=== PATIENT | female | born 1945 | race Caucasian/White ===

== ENCOUNTER 2019-09-26 07:46 | Inpatient (IN) | payer MEDICARE, BC ==
[2019-09-26] MEDS ORDERED: SODIUM CHLORIDE 0.9% 1,000 ML IV STA (07:57)
--- NOTE | 2019-09-26 07:59 | ED ---
SOB HPI - General Chief Complaint: Shortness of Breath Stated Complaint: Sore throat/cough/sob Time Seen by Provider: 09/26/19 07:57 Source: patient, family Mode of arrival: wheelchair Limitations: no limitations - History of Present Illness Initial Comments: 73-year-old female with history of chronic hypoxia with COPD presents emergency department today for chief complaint of shortness of breath. Patient states that she had increasing shortness of breath for the past 3-4 days. Patient states that she has had increasing cough or sputum production. States she had a temperature 100.1 yesterday. Patient denies any leg swelling bilateral or unilateral. Denies any calf pain history of cancer history of unprovoked DVT or pulmonary embolism, however did have a DVT after childbirth. Patient denies any chest pressure but admits to right-sided sharp chest pain with deep inspiration. Patient denies hemoptysis. Patient states she is usually on oxygen at home, however seems to be short of breath despite oxygen therapy. Patient denies any specific positions which are more comfortable such as lying flat or sitting up. Patient states a few days ago she did have a sore throat but this has since resolved. Remaining review of systems negative upon arrival patient appears well but signs of acute distress however is found to be hypoxic with tac hycardia. - Related Data Home Medications Medication Instructions Recorded Confirmed Aspirin EC [Ecotrin Low Dose] 81 mg PO DAILY 09/26/19 09/26/19 Budesonide-Formot 160-4.5 Mcg 2 puff INHALATION RT-BID 09/26/19 09/26/19 [Symbicort 160-4.5 Mcg Inhaler] Ipratropium [place] [Ipratropium 1 spray EA NOSTRIL BID PRN 09/26/19 09/26/19 [place] 0.03%] Ipratropium/Albuterol Sulfate 2 puff INHALATION RT-QID PRN 09/26/19 09/26/19 [Combivent Respimat Inhaler] Multivitamins, Thera [Multivitamin 1 tab PO DAILY 09/26/19 09/26/19 (formulary)] PARoxetine HCL [Paxil] 40 mg PO DAILY 09/26/19 09/26/19 busPIRone HCL 15 mg PO BID 09/26/19 09/26/19 Allergies Allergy/AdvReac Type Severity Reaction Status Date / Time No Known Allergies Allergy Verified 09/26/19 10:25 Review of Systems ROS Statement: Those systems with pertinent positive or pertinent negative responses have been documented in the HPI. ROS Other: All systems not noted in ROS Statement are negative. Past Medical History Past Medical History: COPD History of Any Multi-Drug Resistant Organisms: None Reported Past Surgical History: Cholecystectomy, Tubal Ligation Past Psychological History: No Psychological Hx Reported Smoking Status: Former smoker Past Alcohol Use History: None Reported Past Drug Use History: None Reported General Exam - General Exam Comments Initial Comments: General: The patient is awake and alert, in no distress Eye: +3 mm pupils are equal, round and reactive to light, extra-ocular movements are intact. No nystagmus. There is normal conjunctiva bilaterally. No signs of icterus. No photophobia Ears, nose, mouth and throat: There are moist mucous membranes and no oral lesions. Oropharynx was not erythematous there is no tonsillar enlargement exudates or lesions. Uvula midline. No anterior cervical lymphadenopathy. Rhinorrhea, clear and bilateral nares. No tripoding, no drooling. Neck: The neck is supple, there is no tenderness or JVD. No nuchal rigidity Cardiovascular: There is a regular rate and rhythm. murmur appreciated however no rub or gallop is appreciated. Respiratory: Diminished lung sounds in all lynn. Expiratory wheeze and rhonchi noted. No specific rales appreciated. No retractions or abdominal breathing. Gastrointestinal: Soft, non-distended, non-tender abdomen without masses or organomegaly noted. There is no rebound or guarding present. Bowel sounds are unremarkable. Musculoskeletal: Normal ROM, no tenderness. Strength 5/5. Sensation intact. Radial pulses equal bilaterally 2+. Neurological: A&O x 3. CN II-XII intact, There are no obvious motor or sensory deficits. Coordination appears grossly intact. Speech appears normal, no muffling. Skin: Skin is warm and dry and no rashes or lesions are noted. No extremity edema or calf pain, (-) homans sign. Psychiatric: Cooperative Limitations: no limitations Course Vital Signs 09/26/19 09/26/19 09/26/19 07:51 08:16 08:27 Temperature 98.1 F Pulse Rate 134 H 128 H 125 H Respiratory 24 Rate Blood Pressure 116/58 O2 Sat by Pulse 81 L Oximetry 09/26/19 09/26/19 09/26/19 08:49 09:05 09:17 Temperature Pulse Rate 71 123 H 120 H Respiratory 22 Rate Blood Pressure 118/67 O2 Sat by Pulse 96 Oximetry 09/26/19 09/26/19 09:42 11:30 Temperature 98.7 F 98.2 F Pulse Rate 112 H 120 H Respiratory 20 18 Rate Blood Pressure 134/86 135/70 O2 Sat by Pulse 96 93 L Oximetry Medical Decision Making - Medical Decision Making 73-year-old female presenting for shortness of breath. Patient found to be tachycardic upon arrival. EKG reveals sinus tachycardia. Patient denies any chest pressure. Admits to pleuritic chest pain with inspiration. CT angios negative for pulmonary embolism. Patient given multiple DuoNeb treatments patient states this has began to resolve symptoms. CT did find findings concerning for possible developing pneumonia. Patient does have history of fever or increasing cough or sputum production. Patient given ceftriaxone in the emergency department. At this time we'll admit patient for pneumonia and COPD exacerbation. Will tend cardiac enzymes and schedule duoneb treatments. Patient agreeable to admission at this time. Discussed case with attending provider Dr. Flores was agreeable to admission and spoke with Dr. Vazquez - Lab Data Result diagrams: 09/26/19 08:20 09/26/19 08:20 Lab Results 09/26/19 09/26/19 09/26/19 Range/Units 08:20 08:20 08:20 WBC 14.6 H (3.8-10.6) k/uL RBC 4.21 (3.80-5.40) m/uL Hgb 13.3 (11.4-16.0) gm/dL Hct 40.4 (34.0-46.0) % MCV 95.8 (80.0-100.0) fL MCH 31.5 (25.0-35.0) pg MCHC 32.9 (31.0-37.0) g/dL RDW 11.4 L (11.5-15.5) % Plt Count 174 (150-450) k/uL Neutrophils % 89 % Lymphocytes % 4 % Monocytes % 4 % Eosinophils % 0 % Basophils % 2 % Neutrophils # 12.9 H (1.3-7.7) k/uL Lymphocytes # 0.6 L (1.0-4.8) k/uL Monocytes # 0.6 (0-1.0) k/uL Eosinophils # 0.0 (0-0.7) k/uL Basophils # 0.3 H (0-0.2) k/uL PT (9.0-12.0) sec INR (<1.2) APTT (22.0-30.0) sec D-Dimer (<0.60) mg/L FEU Sodium 139 (137-145) mmol/L Potassium 4.6 (3.5-5.1) mmol/L Chloride 96 L (98-107) mmol/L Carbon Dioxide 35 H (22-30) mmol/L Anion Gap 8 mmol/L BUN 17 (7-17) mg/dL Creatinine 0.72 (0.52-1.04) mg/dL Est GFR (CKD-EPI)AfAm >90 (>60 ml/min/1.73 sqM) Est GFR (CKD-EPI)NonAf 84 (>60 ml/min/1.73 sqM) Glucose 157 H (74-99) mg/dL Plasma Lactic Acid Jose Alejandro (0.7-2.0) mmol/L Calcium 9.9 (8.4-10.2) mg/dL Total Bilirubin 0.9 (0.2-1.3) mg/dL AST 50 H (14-36) U/L ALT 50 (9-52) U/L Alkaline Phosphatase 59 (38-126) U/L Troponin I (0.000-0.034) ng/mL NT-Pro-B Natriuret Pep 310 pg/mL Total Protein 7.0 (6.3-8.2) g/dL Albumin 4.1 (3.5-5.0) g/dL Influenza Type A RNA (Not Detectd) Influenza Type B (PCR) (Not Detectd) 09/26/19 09/26/19 09/26/19 Range/Units 08:20 08:20 08:20 WBC (3.8-10.6) k/uL RBC (3.80-5.40) m/uL Hgb (11.4-16.0) gm/dL Hct (34.0-46.0) % MCV (80.0-100.0) fL MCH (25.0-35.0) pg MCHC (31.0-37.0) g/dL RDW (11.5-15.5) % Plt Count (150-450) k/uL Neutrophils % % Lymphocytes % % Monocytes % % Eosinophils % % Basophils % % Neutrophils # (1.3-7.7) k/uL Lymphocytes # (1.0-4.8) k/uL Monocytes # (0-1.0) k/uL Eosinophils # (0-0.7) k/uL Basophils # (0-0.2) k/uL PT 10.3 (9.0-12.0) sec INR 1.0 (<1.2) APTT 24.4 (22.0-30.0) sec D-Dimer 0.42 (<0.60) mg/L FEU Sodium (137-145) mmol/L Potassium (3.5-5.1) mmol/L Chloride (98-107) mmol/L Carbon Dioxide (22-30) mmol/L Anion Gap mmol/L BUN (7-17) mg/dL Creatinine (0.52-1.04) mg/dL Est GFR (CKD-EPI)AfAm (>60 ml/min/1.73 sqM) Est GFR (CKD-EPI)NonAf (>60 ml/min/1.73 sqM) Glucose (74-99) mg/dL Plasma Lactic Acid Jose Alejandro (0.7-2.0) mmol/L Calcium (8.4-10.2) mg/dL Total Bilirubin (0.2-1.3) mg/dL AST (14-36) U/L ALT (9-52) U/L Alkaline Phosphatase (38-126) U/L Troponin I 0.028 (0.000-0.034) ng/mL NT-Pro-B Natriuret Pep pg/mL Total Protein (6.3-8.2) g/dL Albumin (3.5-5.0) g/dL Influenza Type A RNA Not Detected (Not Detectd) Influenza Type B (PCR) Not Detected (Not Detectd) 09/26/19 Range/Units 08:20 WBC (3.8-10.6) k/uL RBC (3.80-5.40) m/uL Hgb (11.4-16.0) gm/dL Hct (34.0-46.0) % MCV (80.0-100.0) fL MCH (25.0-35.0) pg MCHC (31.0-37.0) g/dL RDW (11.5-15.5) % Plt Count (150-450) k/uL Neutrophils % % Lymphocytes % % Monocytes % % Eosinophils % % Basophils % % Neutrophils # (1.3-7.7) k/uL Lymphocytes # (1.0-4.8) k/uL Monocytes # (0-1.0) k/uL Eosinophils # (0-0.7) k/uL Basophils # (0-0.2) k/uL PT (9.0-12.0) sec INR (<1.2) APTT (22.0-30.0) sec D-Dimer (<0.60) mg/L FEU Sodium (137-145) mmol/L Potassium (3.5-5.1) mmol/L Chloride (98-107) mmol/L Carbon Dioxide (22-30) mmol/L Anion Gap mmol/L BUN (7-17) mg/dL Creatinine (0.52-1.04) mg/dL Est GFR (CKD-EPI)AfAm (>60 ml/min/1.73 sqM) Est GFR (CKD-EPI)NonAf (>60 ml/min/1.73 sqM) Glucose (74-99) mg/dL Plasma Lactic Acid [place] 1.6 (0.7-2.0) mmol/L Calcium (8.4-10.2) mg/dL Total Bilirubin (0.2-1.3) mg/dL AST (14-36) U/L ALT (9-52) U/L Alkaline Phosphatase (38-126) U/L Troponin I (0.000-0.034) ng/mL NT-Pro-B Natriuret Pep pg/mL Total Protein (6.3-8.2) g/dL Albumin (3.5-5.0) g/dL Influenza Type A RNA (Not Detectd) Influenza Type B (PCR) (Not Detectd) Disposition Clinical Impression: Tachycardia, Pneumonia, COPD exacerbation, Cough Disposition: ADMITTED IP TO THIS HOSP Condition: Stable Is patient prescribed a controlled substance at d/c from ED?: No Referrals: Eric Gay MD [Primary Care Provider] - 1-2 days Time of Disposition: 11:14 Decision to Admit Reason: Admit from EC Decision Date: 09/26/19 Decision Time: 11:14
[2019-09-26] MEDS ORDERED: IPRATROPIUM-ALBUTEROL 3 ML NEB INHALATION STA ×2 (08:04→08:57)
[2019-09-26] MEDS ORDERED: methylPREDNISolone SOD SUCCI 125 MG/2 ML VIAL IV STA (08:04)
--- NOTE | 2019-09-26 09:06 | XR ---
EXAMINATION TYPE: XR chest 2V DATE OF EXAM: 09/26/2019 COMPARISON: None HISTORY: 73 year-old female shortness of breath, difficulty breathing TECHNIQUE: PA and lateral views FINDINGS: Heart normal size. Aorta and pulmonary vasculature within normal limits. Hyperinflation with mild int erstitial prominence. Left-sided nipple shadow visualized. No consolidation or pleural effusion. IMPRESSION: COPD with advanced emphysema. No acute process seen.
[2019-09-26 09:08] LABS: ALT 50 U/L (9-52); AST 50 U/L (14-36); African American GFR (CKD) >90 (>60 ml/min/1.73 sqM); Albumin 4.1 g/dL (3.5-5.0); Alkaline Phosphatase 59 U/L (38-126); Anion Gap 8 mmol/L; Blood Urea Nitrogen 17 mg/dL (7-17); Calcium 9.9 mg/dL (8.4-10.2); Carbon Dioxide 35 mmol/L (22-30); Chloride 96 mmol/L (98-107); Glucose 157 mg/dL (74-99); Non-African American GFR(CKD) 84 (>60 ml/min/1.73 sqM); Potassium 4.6 mmol/L (3.5-5.1); Sodium 139 mmol/L (137-145); Total Bilirubin 0.9 mg/dL (0.2-1.3)
[2019-09-26 09:09] LABS: D-Dimer 0.42 mg/L FEU (<0.60); Partial Thromboplastin Time 24.4 sec (22.0-30.0); Prothrombin Time 10.3 sec (9.0-12.0)
[2019-09-26 09:27] LABS: Basophils # (A) 0.3 k/uL (0-0.2); Basophils % (A) 2 %; Eosinophils % (A) 0 %; HCT 40.4 % (34.0-46.0); HGB 13.3 gm/dL (11.4-16.0); Lymphocytes # (A) 0.6 k/uL (1.0-4.8); Lymphocytes % (A) 4 %; MCH 31.5 pg (25.0-35.0); MCHC 32.9 g/dL (31.0-37.0); MCV 95.8 fL (80.0-100.0); Mean Platelet Volume 7.2; Monocytes # (A) 0.6 k/uL (0-1.0); Monocytes % (A) 4 %; Neutrophils # (A) 12.9 k/uL (1.3-7.7); Neutrophils % (A) 89 %; Platelet Count 174 k/uL (150-450); RBC 4.21 m/uL (3.80-5.40); RDW 11.4 % (11.5-15.5); WBC 14.6 k/uL (3.8-10.6)
--- NOTE | 2019-09-26 10:11 | CT ---
EXAMINATION TYPE: CT angio chest DATE OF EXAM: 09/26/2019 COMPARISON: NONE HISTORY: Clinical concern for PE. Shortness of breath. CT DLP: 184.9 mGycm. Automated Exposure Control for Dose Reduction was Utilized. CONTRAST: CTA scan of the thorax is performed without and with IV Contrast, patient injected with 100 ml mL of Isovue 370, pulmonary embolism protocol. MIP Images are created on CT scanner and reviewed. FINDINGS: LUNGS: Some solid pulmonary nodule in the right lower lobe as seen on series 406 image 91 measuring 1 0.3 x 6.7 mm. Some linear airspace disease within the lingula appears as atelectasis or mucus pluggin g. Peribronchial cuffing to the left lower lobe bronchi are seen beginning at the hilum. Slight hilar peribronchial cuffing on the right in the right upper lobe. Cylindrical bronchiectasis throughout. M oderate centrilobular emphysematous changes. Scattered areas of pleural-parenchymal scarring and pleu ral thickening with biapical nodular pleural parenchymal thickening. MEDIASTINUM: There is satisfactory enhancement of the pulmonary artery and its branches, there is no CT evidence for pulmonary embolism. A few enlarged mediastinal lymph nodes with a prior lymph node me asuring 1.1 cm in short axis and right hilar adenopathy measuring 1.5 x 1.5 cm. Left hilar lymph node measures 0.9 cm in short axis. No cardiomegaly or pericardial effusion is seen. Mild coronary artery calcifications within the left anterior descending coronary artery and moderate within the left main coronary artery. Aortic root measures 4.1 cm, mildly aneurysmal. Ascending thoracic aorta is upper limits of normal si ze measuring 3.8 cm. OTHER: Cholecystectomy is seen with postsurgical extra hepatic biliary ductal dilatation. Elongation of the left hepatic lobe into the left upper quadrant. Angiographic phase of the liver limits evaluat ion. Extensive atherosclerosis of the upper abdominal aorta. Probable left upper pole renal cyst with pseudoenhancement. This has an average Hounsfield unit of 27. Thyroid gland is noted to be heterogen ous. Mild multilevel degenerative changes of the spine. IMPRESSION: 1. No evidence of pulmonary embolus. 2. Moderate pulmonary emphysema with multifocal peribronchial cuffing (which may be reactive or infec tious in etiology-consider bronchitis), probable mucus plugging in the lingula, and right lower lobe subsolid pulmonary nodule. Given the morphology and composition follow-up CT thorax in 3 months is re commended to assess for any interval growth. If there is persistent that this time this does meet siz e criteria for PET/CT. 3. Mild aneurysmal dilatation of the aortic root and upper limits of normal size of the thoracic aort a.
[2019-09-26] MEDS ORDERED: SODIUM CHLORIDE 0.9% 500 ML 500 ML IV ONE (10:55)
[2019-09-26] MEDS ORDERED: IPRATROPIUM-ALBUTEROL 3 ML NEB INHALATION PRN (11:12)
[2019-09-26] MEDS: SODIUM CHLORIDE 0.9% 1,000 ML IV SCH ×2 (11:30→21:28)
[2019-09-26] MEDS: IPRATROPIUM-ALBUTEROL 3 ML NEB INHALATION SCH ×4 (15:01→18:59)
[2019-09-26] MEDS: busPIRone HCl 5 MG TAB PO SCH (21:27)
--- NOTE | 2019-09-26 22:27 | P.HPIM ---
History of Present Illness H&P Date: 09/26/19 Chief Complaint: Short of breath History of presenting complaint: This is a very pleasant 73-year-old patient of Dr. Eric Taylor. Several family members are present to her. Patient did smoke for many years stopped about 6 years ago. Has a known diagnosis of COPD. Patient 3 days ago started out with a sore throat and progressively became worse. Patient started coughing started bringing up yellow sputum. Fever at about 101. Wheezing tired. At home patient normally uses 2 L of oxygen. Her oxygen company told her to increase the oxygen to 3 L when she habits. Appetite is gone down. Tired rundown. Admitted for the same. PE was ruled out. Chest x-ray did not show any obvious infiltrate. Patient been living with her daughter. She has always been a small eater.. Has lost some weight in the last 1 year close to 15 pounds Review of systems: GEN.: Weak tired fever or weight loss EYES: None HEENT: None NECK: None RESPIRATORY: As above CARDIOVASCULAR: None GASTROINTESTINAL: None GENITOURINARY: None MUSCULOSKELETAL: None LYMPHATICS: None HEMATOLOGICAL: None PSYCHIATRY: Anxiety depression NEUROLOGICAL: None Past medical history to include: Anxiety, depression, COPD Social history: Lives with her daughter. Smoked about 2 packs a day for close to 50 years stopped about 6 months ago. No alcohol. Family history: Reviewed, noncontributory to presentation Physical examination: VITAL SIGNS: 98.1, 134, 24, 106/58, 81% on 2 L GENERAL: BMI 16, sitting up tired. EYES: Pupils equal. Conjunctiva normal. HEENT: External appearance of nose and ears normal, oral cavity grossly normal. NECK: JVD not raised; masses not palpable. HEART: First and second heart sounds are normal; no edema. LUNGS: Respiratory rate increased, poor air entry prolonged expiration. ABDOMEN: Soft, nontender, liver spleen not palpable, no masses palpable. PSYCH: Alert and oriented x3; mood and affect slightly anxiousl. NEUROLOGICAL: Cranial nerves grossly intact; no facial asymmetry, power and sensation grossly intact. LYMPHATICS: No lymph nodes palpable in the axilla and neck MUSCULOSKELETAL: Loss of subcutaneous fat, evidence of OA INVESTIGATIONS, reviewed in the clinical context: White count 14 was 6 hemoglobin 13.3 platelets 174 progression 4.6 creatinine 0.7 to Troponin 0.028, 0.0-4, 0.020 EKG tracing personally reviewed by me-sinus tachycardia with evidence of P pulmonale Chest x-ray film personally reviewed by me-severe emphysema with a tubular heart no obvious infiltrate Chest CTA-negative for PE Assessment: -Acute severe advanced emphysema exacerbation and an ex-smoker -Acute tracheal bronchitis -Acute hypoxic up on chronic hypoxic respiratory failure from emphysema -Moderate protein calorie malnutrition decreased oral intake -Strongly suspect underlying secondary probably hypertension due to COPD. Plan: -Patient started on nebulized bronchodilators every 4 hours, inhaled and IV steroids, IV ceftriaxone, oxygen supplementation. Ensure is being added. Dietitian will be consulted. Care was discussed with the patient and family the bedside. Lovenox for DVT prophylaxis. 2 2-D echocardiogram to assess for secondary portal hypertension. Past Medical History Past Medical History: COPD History of Any Multi-Drug Resistant Organisms: None Reported Past Surgical History: Cholecystectomy, Tubal Ligation Past Psychological History: No Psychological Hx Reported Smoking Status: Former smoker Past Alcohol Use History: None Reported Past Drug Use History: None Reported Medications and Allergies Home Medications Medication Instructions Recorded Confirmed Type Aspirin EC [Ecotrin Low Dose] 81 mg PO DAILY 09/26/19 09/26/19 History Budesonide-Formot 160-4.5 Mcg 2 puff INHALATION RT-BID 09/26/19 09/26/19 History [Symbicort 160-4.5 Mcg Inhaler] Ipratropium [place] [Ipratropium 1 spray EA NOSTRIL BID PRN 09/26/19 09/26/19 History [place] 0.03%] Ipratropium/Albuterol Sulfate 2 puff INHALATION RT-QID PRN 09/26/19 09/26/19 History [Combivent Respimat Inhaler] Multivitamins, Thera [Multivitamin 1 tab PO DAILY 09/26/19 09/26/19 History (formulary)] PARoxetine HCL [Paxil] 40 mg PO DAILY 09/26/19 09/26/19 History busPIRone HCL 15 mg PO BID 09/26/19 09/26/19 History Allergies Allergy/AdvReac Type Severity Reaction Status Date / Time No Known Allergies Allergy Verified 09/26/19 10:25 Physical Exam Vitals: Vital Signs Temp Pulse Pulse Resp BP BP Pulse Ox 09/26/19 20:16 98.1 F 119 H 20 120/64 95 11/18/19 19:09 112 H 09/26/19 18:59 112 H 09/26/19 17:26 18 09/26/19 15:16 110 H 09/26/19 15:08 110 H 09/26/19 15:00 97.8 F 119 H 18 148/54 98 09/26/19 12:21 98.7 F 121 H 18 144/63 95 09/26/19 11:30 98.2 F 120 H 18 135/70 93 L 09/26/19 09:42 98.7 F 112 H 20 134/86 96 09/26/19 09:17 120 H 09/26/19 09:05 123 H 09/26/19 08:49 71 22 118/67 96 09/26/19 08:27 125 H 09/26/19 08:16 128 H 09/26/19 07:51 98.1 F 134 H 24 116/58 81 L Intake and Output 09/26/19 09/26/19 09/26/19 06:59 14:59 22:59 Other: # Voids 2 1 Weight 47.627 kg Results CBC & Chem 7: 09/26/19 08:20 09/26/19 08:20 Labs: Abnormal Lab Results - Last 24 Hours (Table) 09/26/19 09/26/19 Range/Units 08:20 08:20 WBC 14.6 H (3.8-10.6) k/uL RDW 11.4 L (11.5-15.5) % Neutrophils # 12.9 H (1.3-7.7) k/uL Lymphocytes # 0.6 L (1.0-4.8) k/uL Basophils # 0.3 H (0-0.2) k/uL Chloride 96 L (98-107) mmol/L Carbon Dioxide 35 H (22-30) mmol/L Glucose 157 H (74-99) mg/dL AST 50 H (14-36) U/L Thrombosis Risk Factor Assmnt - Choose All That Apply Each Risk Factor Represents 2 Points: Age 61-74 years Thrombosis Risk Factor Assessment Total Risk Factor Score: 2 Thrombosis Risk Factor Assessment Level: Low Risk
[2019-09-27] MEDS: methylPREDNISolone SOD SUCCI 40 MG/ML 1 ML VIAL IV SCH ×6 (00:04→23:20)
[2019-09-27] MEDS: ENOXAPARIN 40 MG/0.4 ML SYRINGE SQ SCH ×2 (00:04→07:47)
[2019-09-27] MEDS: SODIUM CHLORIDE 0.9% 1,000 ML IV SCH ×2 (00:06→20:31)
[2019-09-27] MEDS: IPRATROPIUM-ALBUTEROL 3 ML NEB INHALATION SCH ×7 (00:17→19:05)
[2019-09-27] MEDS: BUDESONIDE 1 MG/2 ML NEBU INHALATION SCH ×3 (00:26→19:04)
[2019-09-27] MEDS: FORMOTEROL FUMARATE 20 MCG/2 ML NEBU INHALATION SCH ×3 (00:26→19:05)
[2019-09-27 07:02] LABS: Glucose,Whole Blood 140 mg/dL (75-99)
[2019-09-27] MEDS: INSULIN ASPART (NovoLOG) 100 UNIT/ML VIAL SQ SCH ×4 (07:38→20:30)
[2019-09-27] MEDS: busPIRone HCl 5 MG TAB PO SCH ×2 (07:46→20:29)
[2019-09-27] MEDS: MULTIVITAMINS, THERA 1 EACH TAB PO SCH (07:46)
[2019-09-27] MEDS: PARoxetine 20 MG TAB PO SCH (07:46)
[2019-09-27] MEDS: AZITHROMYCIN 500 MG TAB PO SCH (07:46)
[2019-09-27] MEDS: ASPIRIN 81 MG PO SCH (07:46)
[2019-09-27] MEDS ORDERED: predniSONE 20 MG TAB PO SCH (09:00)
[2019-09-27 11:49] LABS: Glucose,Whole Blood 152 mg/dL (75-99)
--- NOTE | 2019-09-27 12:37 | ECHOF ---
Referral Reason:Secondary pulmonary hypertension MEASUREMENTS -------- HEIGHT: 172.7 cm WEIGHT: 47.6 kg BP: 128/57 RVIDd: 2.6 cm (< 3.3) IVSd: 1.1 cm (0.6 - 1.1) LVIDd: 2.9 cm (3.9 - 5.3) LVPWd: 1.2 cm (0.6 - 1.1) IVSs: 1.6 cm LVIDs: 2.0 cm LVPWs: 1.7 cm LA Diam: 2.7 cm (2.7 - 3.8) LAESV Index (A-L): 20.75 ml/m Ao Diam: 3.5 cm (2.0 - 3.7) AV Cusp: 2.1 cm (1.5 - 2.6) MV EXCURSION: 20.022 mm (> 18.000) MV EF SLOPE: 198 mm/s (70 - 150) EPSS: 0.7 cm MV E Aidan: 1.65 m/s MV DecT: 107 ms MV A Aidan: 0.57 m/s MV E/A Ratio: 2.91 RAP: 5.00 mmHg RVSP: 40.09 mmHg TAPSE: 20.35 mm FINDINGS -------- Resting tachycardia (HR>100bpm). This was a technically good study. The left ventricular size is normal. There is borderline concentric left ventricular hypertrophy. Overall left ventricular systolic function is normal with, an EF between 60 - 65 %. The right ventricle is normal in size. Normal LA size by volume 22+/-6 ml/m2. The right atrium is normal in size. Interatrial and interventricular septum intact. The aortic valve is trileaflet and appears structurally normal. The mitral valve leaflets are mildly thickened. Mild tricuspid regurgitation present. There is mild pulmonary hypertension. The right ventricular systolic pressure, as measured by Doppler, is 40.09mmHg. There is no pulmonic regurgitation present. The aortic root size is normal. Normal inferior vena cava with normal inspiratory collapse consistent with estimated right atrial pre ssure of 5 mmHg. There is no pericardial effusion. CONCLUSIONS -------- 1. Resting tachycardia (HR>100bpm). 2. This was a technically good study. 3. The left ventricular size is normal. 4. There is borderline concentric left ventricular hypertrophy. 5. Overall left ventricular systolic function is normal with, an EF between 60 - 65 %. 6. The right ventricle is normal in size. 7. Normal LA size by volume 22+/-6 ml/m2. 8. The right atrium is normal in size. 9. Interatrial and interventricular septum intact. 10. The aortic valve is trileaflet and appears structurally normal. 11. The mitral valve leaflets are mildly thickened. 12. Mild tricuspid regurgitation present. 13. There is mild pulmonary hypertension. 14. The right ventricular systolic pressure, as measured by Doppler, is 40.09mmHg. 15. There is no pulmonic regurgitation present. 16. The aortic root size is normal. 17. Normal inferior vena cava with normal inspiratory collapse consistent with estimated right atrial pressure of 5 mmHg. 18. There is no pericardial effusion. FOUNTAIN JERK: Magali Yuen RDCS
[2019-09-27 14:56] VITALS: BMI 16.0
[2019-09-27 16:34] LABS: Glucose,Whole Blood 193 mg/dL (75-99)
[2019-09-27 20:25] LABS: Glucose,Whole Blood 222 mg/dL (75-99)
--- NOTE | 2019-09-27 23:11 | P.PN ---
Progress Note - Text Progress Note Date: 09/27/19 Chief Complaint: Short of breath History of presenting complaint: This is a very pleasant 73-year-old patient of Dr. Eric Taylor. Several family members are present to her. Patient did smoke for many years stopped about 6 years ago. Has a known diagnosis of COPD. Patient 3 days ago started out with a sore throat and progressively became worse. Patient started coughing started bringing up yellow sputum. Fever at about 101. Wheezing tired. At home patient normally uses 2 L of oxygen. Her oxygen company told her to increase the oxygen to 3 L when she habits. Appetite is gone down. Tired rundown. Admitted for the same. PE was ruled out. Chest x-ray did not show any obvious infiltrate. Patient been living with her daughter. She has always been a small eater.. Has lost some weight in the last 1 year close to 15 pounds admitted with acute severe COPD exacerbation, acute tracheobronchitis, acute hypoxic respiratory failure. Today-sitting up in a chair. 2 daughters are visiting. Some tremors.with use of bronchodilators. Short of breath. Review of systems: Was done for constitutional, cardiovascular, GI, pulmonary. relevant finding as above Active Medications Albuterol/Ipratropium (Duoneb 0.5 Mg-3 Mg/3 Ml Soln) 3 ml INHALATION RT-Q4H PRN PRN Reason: Shortness Of Breath Or Wheezing Albuterol/Ipratropium (Duoneb 0.5 Mg-3 Mg/3 Ml Soln) 3 ml INHALATION RT-Q6H [facility] Last Admin: 09/27/19 19:05 Dose: 3 ml Documented by: Aspirin (Aspirin) 81 mg PO DAILY [facility] Last Admin: 09/27/19 07:46 Dose: 81 mg Documented by: Azithromycin (Zithromax) 500 mg PO DAILY [facility] Last Admin: 09/27/19 07:46 Dose: 500 mg Documented by: Budesonide (Pulmicort) 1 mg INHALATION RT-BID [facility] Last Admin: 09/27/19 19:04 Dose: 1 mg Documented by: Buspirone HCl (Buspar) 15 mg PO BID [facility] Last Admin: 09/27/19 20:29 Dose: 15 mg Documented by: Enoxaparin Sodium (Lovenox) 40 mg SQ DAILY [facility] Last Admin: 09/27/19 07:47 Dose: 40 mg Documented by: Formoterol Fumarate (Perforomist) 20 mcg INHALATION RT-BID [facility] Last Admin: 09/27/19 19:05 Dose: 20 mcg Documented by: Sodium Chloride (Saline 0.9%) 1,000 mls @ 10 mls/hr IV .Q24H [facility] Last Admin: 09/27/19 20:31 Dose: Not Given Documented by: Insulin Aspart (Novolog) 0 unit SQ ACHS [facility]; Protocol Last Admin: 09/27/19 20:30 Dose: 3 unit Documented by: Methylprednisolone Sodium Succinate (Solu-Medrol) 40 mg IV Q8HR [facility] Last Admin: 09/27/19 17:50 Dose: 40 mg Documented by: Multivitamins (Theragran) 1 each PO DAILY [facility] Last Admin: 09/27/19 07:46 Dose: 1 each Documented by: Paroxetine HCl (Paxil) 40 mg PO DAILY [facility] Last Admin: 09/27/19 07:46 Dose: 40 mg Documented by: Physical examination: VITAL SIGNS: 98.2, 116, 17, 131/72, 96% liters GENERAL: BMI 16, sitting up in a chair, a bit anxious EYES: Pupils equal. Conjunctiva normal. HEENT: External appearance of nose and ears normal, oral cavity grossly normal. NECK: JVD not raised; masses not palpable. HEART: First and second heart sounds are normal; no edema. LUNGS: Respiratory rate increased, poor air entry prolonged expiration. ABDOMEN: Soft, nontender, liver spleen not palpable, no masses palpable. PSYCH: Alert and oriented x3; mood and affect slightly anxiousl. NEUROLOGICAL: mild tremors MUSCULOSKELETAL: Loss of subcutaneous fat, evidence of OA INVESTIGATIONS, reviewed in the clinical context: White count 14 was 6 hemoglobin 13.3 platelets 174 progression 4.6 creatinine 0.7 to Troponin 0.028, 0.0-4, 0.020 EKG tracing personally reviewed by me-sinus tachycardia with evidence of P pulmonale Chest x-ray film personally reviewed by me-severe emphysema with a tubular heart no obvious infiltrate Chest CTA-negative for PE 2-D echo-EF 60-65%, Assessment: -Acute severe advanced emphysema exacerbation and an ex-smoker, POA, slow to respond -Acute tracheal bronchitis -Acute hypoxic up on chronic hypoxic respiratory failure from emphysema -Moderate protein calorie malnutrition decreased oral intake -Tremor secondary to bronchodilators Plan: Back on bronchodilators to every 6 hours.decrease Solu-Medrol to every 12 hours. Had a lengthy discussed with the patient and family. Prognosis guarded. Patient immediately still hospital for another woman 2 days at least. Encouraged to increase oral intake.
[2019-09-28] MEDS: IPRATROPIUM-ALBUTEROL 3 ML NEB INHALATION SCH ×4 (01:39→21:31)
[2019-09-28 06:59] LABS: Glucose,Whole Blood 119 mg/dL (75-99)
[2019-09-28] MEDS: INSULIN ASPART (NovoLOG) 100 UNIT/ML VIAL SQ SCH ×4 (07:19→20:54)
[2019-09-28] MEDS: FORMOTEROL FUMARATE 20 MCG/2 ML NEBU INHALATION SCH ×2 (08:07→21:31)
[2019-09-28] MEDS: BUDESONIDE 1 MG/2 ML NEBU INHALATION SCH ×2 (08:07→21:31)
[2019-09-28] MEDS: busPIRone HCl 5 MG TAB PO SCH ×2 (08:17→20:55)
[2019-09-28] MEDS: AZITHROMYCIN 500 MG TAB PO SCH (08:18)
[2019-09-28] MEDS: ASPIRIN 81 MG PO SCH (08:18)
[2019-09-28] MEDS: methylPREDNISolone SOD SUCCI 40 MG/ML 1 ML VIAL IV SCH ×3 (08:18→22:56)
[2019-09-28] MEDS: MULTIVITAMINS, THERA 1 EACH TAB PO SCH (08:18)
[2019-09-28] MEDS: PARoxetine 20 MG TAB PO SCH (08:18)
[2019-09-28] MEDS: ENOXAPARIN 40 MG/0.4 ML SYRINGE SQ SCH (08:20)
[2019-09-28 08:23] LABS: ALT 78 U/L (9-52); AST 82 U/L (14-36); African American GFR (CKD) >90 (>60 ml/min/1.73 sqM); Albumin 3.6 g/dL (3.5-5.0); Alkaline Phosphatase 57 U/L (38-126); Anion Gap 5 mmol/L; Blood Urea Nitrogen 22 mg/dL (7-17); Calcium 9.8 mg/dL (8.4-10.2); Carbon Dioxide 34 mmol/L (22-30); Chloride 104 mmol/L (98-107); Glucose 125 mg/dL (74-99); Magnesium 1.9 mg/dL (1.6-2.3); Non-African American GFR(CKD) 81 (>60 ml/min/1.73 sqM); Sodium 143 mmol/L (137-145); Total Bilirubin 0.3 mg/dL (0.2-1.3); Total Protein 6.4 g/dL (6.3-8.2)
[2019-09-28 08:35] LABS: Ionized Calcium 5.1 mg/dL (4.5-5.3)
[2019-09-28 11:27] LABS: Glucose,Whole Blood 121 mg/dL (75-99)
[2019-09-28 17:05] LABS: Glucose,Whole Blood 130 mg/dL (75-99)
[2019-09-28 20:54] LABS: Glucose,Whole Blood 190 mg/dL (75-99)
[2019-09-28] MEDS: SODIUM CHLORIDE 0.9% 1,000 ML IV SCH (20:55)
--- NOTE | 2019-09-28 22:16 | P.PN ---
Progress Note - Text Progress Note Date: 09/28/19 Chief Complaint: Short of breath Interval history: This is a very pleasant 73-year-old patient of Dr. Eric Taylor. Several family members are present to her. Patient did smoke for many years stopped about 6 years ago. Has a known diagnosis of COPD. Patient 3 days ago started out with a sore throat and progressively became worse. Patient started coughing started bringing up yellow sputum. Fever at about 101. Wheezing tired. At home patient normally uses 2 L of oxygen. Her oxygen company told her to increase the oxygen to 3 L when she habits. Appetite is gone down. Tired rundown. Admitted for the same. PE was ruled out. Chest x-ray did not show any obvious infiltrate. Patient been living with her daughter. She has always been a small eater.. Has lost some weight in the last 1 year close to 15 pounds admitted with acute severe COPD exacerbation, acute tracheobronchitis, acute hypoxic respiratory failure. Today-yesterday evening dose of Solu-Medrol was cut back to 20 mg every 8. Also DuoNeb was cut back to every 6 hours. Today patient feels a bit better. Less jittery. Breathing slightly better. Members of present bedside. Eating some food. Review of systems: Was done for constitutional, cardiovascular, GI, pulmonary. relevant finding as above Active Medications Albuterol/Ipratropium (Duoneb 0.5 Mg-3 Mg/3 Ml Soln) 3 ml INHALATION RT-Q4H PRN PRN Reason: Shortness Of Breath Or Wheezing Albuterol/Ipratropium (Duoneb 0.5 Mg-3 Mg/3 Ml Soln) 3 ml INHALATION RT-Q6H [facility] Last Admin: 09/28/19 21:31 Dose: 3 ml Documented by: Aspirin (Aspirin) 81 mg PO DAILY [facility] Last Admin: 09/28/19 08:18 Dose: 81 mg Documented by: Azithromycin (Zithromax) 500 mg PO DAILY [facility] Last Admin: 09/28/19 08:18 Dose: 500 mg Documented by: Budesonide (Pulmicort) 1 mg INHALATION RT-BID [facility] Last Admin: 09/28/19 21:31 Dose: 1 mg Documented by: Buspirone HCl (Buspar) 15 mg PO BID [facility] Last Admin: 11/20/19 20:55 Dose: 15 mg Documented by: Enoxaparin Sodium (Lovenox) 40 mg SQ DAILY [facility] Last Admin: 09/28/19 08:20 Dose: 40 mg Documented by: Formoterol Fumarate (Perforomist) 20 mcg INHALATION RT-BID [facility] Last Admin: 09/28/19 21:31 Dose: 20 mcg Documented by: Sodium Chloride (Saline 0.9%) 1,000 mls @ 10 mls/hr IV .Q24H [facility] Last Admin: 09/28/19 20:55 Dose: Not Given Documented by: Insulin Aspart (Novolog) 0 unit SQ ACHS [facility]; Protocol Last Admin: 09/28/19 20:54 Dose: 2 unit Documented by: Methylprednisolone Sodium Succinate (Solu-Medrol) 20 mg IV Q8HR [facility] Last Admin: 09/28/19 16:10 Dose: 20 mg Documented by: Multivitamins (Theragran) 1 each PO DAILY [facility] Last Admin: 09/28/19 08:18 Dose: 1 each Documented by: Paroxetine HCl (Paxil) 40 mg PO DAILY [facility] Last Admin: 09/28/19 08:18 Dose: 40 mg Documented by: Physical examination: VITAL SIGNS: 98.6, 119, 21, 150/80, 96% on 3 L GENERAL: BMI 16, sitting up in the window, EYES: Pupils equal. Conjunctiva normal. HEENT: External appearance of nose and ears normal, oral cavity grossly normal. NECK: JVD not raised; masses not palpable. HEART: First and second heart sounds are normal; no edema. LUNGS: Respiratory rate increased, slightly better air entry ABDOMEN: Soft, nontender, liver spleen not palpable, no masses palpable. PSYCH: Alert and oriented x3; mood and affect slightly anxiousl. NEUROLOGICAL: mild tremors , decreased MUSCULOSKELETAL: Loss of subcutaneous fat, evidence of OA INVESTIGATIONS, reviewed in the clinical context: Potassium 5 bun 22 creatinine 0.74 TSH 0.85 to Previous testing White count 14 was 6 hemoglobin 13.3 platelets 174 Troponin 0.028, 0.0-4, 0.020 EKG tracing personally reviewed by me-sinus tachycardia with evidence of P pulmonale Chest x-ray film personally reviewed by me-severe emphysema with a tubular heart no obvious infiltrate Chest CTA-negative for PE 2-D echo-EF 60-65%, Assessment: -Acute severe advanced emphysema exacerbation and an ex-smoker, POA, slow to respond -Acute tracheal bronchitis -Acute hypoxic up on chronic hypoxic respiratory failure from emphysema -Moderate protein calorie malnutrition decreased oral intake -Tremor secondary to bronchodilators Plan: Care was discussed with the patient and the family. Because of Advanced emphysema patient is taking time. Continue current medication treatment plan. Encouraged to ambulate.
[2019-09-29] MEDS: IPRATROPIUM-ALBUTEROL 3 ML NEB INHALATION SCH ×4 (03:24→19:30)
[2019-09-29 07:11] LABS: Glucose,Whole Blood 108 mg/dL (75-99)
[2019-09-29] MEDS: INSULIN ASPART (NovoLOG) 100 UNIT/ML VIAL SQ SCH ×4 (07:21→20:19)
[2019-09-29] MEDS: PARoxetine 20 MG TAB PO SCH (08:11)
[2019-09-29] MEDS: MULTIVITAMINS, THERA 1 EACH TAB PO SCH (08:11)
[2019-09-29] MEDS: ASPIRIN 81 MG PO SCH (08:11)
[2019-09-29] MEDS: busPIRone HCl 5 MG TAB PO SCH ×2 (08:11→20:25)
[2019-09-29] MEDS: ENOXAPARIN 40 MG/0.4 ML SYRINGE SQ SCH (08:11)
[2019-09-29] MEDS: AZITHROMYCIN 500 MG TAB PO SCH (08:12)
[2019-09-29] MEDS: methylPREDNISolone SOD SUCCI 40 MG/ML 1 ML VIAL IV SCH (08:12)
[2019-09-29] MEDS: FORMOTEROL FUMARATE 20 MCG/2 ML NEBU INHALATION SCH ×2 (08:30→19:48)
[2019-09-29] MEDS: BUDESONIDE 1 MG/2 ML NEBU INHALATION SCH ×2 (08:30→19:30)
[2019-09-29 11:52] LABS: Glucose,Whole Blood 186 mg/dL (75-99)
--- NOTE | 2019-09-29 13:07 | P.CRDCN ---
History of Present Illness History of present illness: HISTORY OF PRESENTING ILLNESS This is a pleasant 73-year-old female past medical history significant for COPD and former nicotine dependence. She presented with shortness of breath. She does not follow in the office with a deli clerk for any reason. We have been asked to see him in consultation for tachycardia. She is currently being treated for acute exacerbation of COPD. She uses oxygen at home PRN. For the previous 3-4 days she has noticed increasing shortness of breath, productive cough and was febrile at one point. She denies chest pain or dizziness. On arrival EKG revealed sinus tachycardia with heart rate of 128. Since admission she has had multiple episodes of increased heart rate with any activity or ambulation in the room. Rates as high as 150. Repeat EKG and telemetry tracings reviewed, sinus tachycardia is again noted consistently. She is quite short of breath on exam as she just walked back from the bathroom. She does notice palpitations and states it makes her feel quite anxious. DIAGNOSTICS EKG reveals sinus tachycardia. Chest xray on admission shows advanced COPD. CTA negative for PE, moderate emphysema with multi-focal peribronchial cuffing, mucous plugging in the lingula and right lower lobe subsolid pulmonary nodule. Laboratory reviewed, WBC 14.6, plt 13.3, plt 174, d-dimer 0.42, sodium 143, potassium 5.0, creatinine 0.74, proBNP 310, cardiac enzymes negative x3, TSH 0.852. She takes not daily cardiac medications. Echocardiogram reveals preserved LV systolic function with EF 60-65%, mild TR and mild pulmonary hypertension with RVSP 40 mmHg. REVIEW OF SYSTEMS At the time of my exam: CONSTITUTIONAL: Denies fever or chills. CARDIOVASCULAR: Complains of shortness of breath and palpitations. Denies chest pain, orthopnea, PND. RESPIRATORY: Complains of cough. GASTROINTESTINAL: Denies abdominal pain, diarrhea, constipation, nausea or vomiting. MUSCULOSKELETAL: Denies myalgias. NEUROLOGIC: Denies numbness, tingling or weakness. ENDOCRINE: Denies fatigue, weight change, polydipsia or polyurina. GENITOURINARY: Denies burning, hematuria or urgency with micturation. HEMATOLOGIC: Denies history of anemia or bleeding. PHYSICAL EXAMINATION Blood pressure 150/80 heart rate 130 afebrile and maintaining oxygen saturaiton on nasal cannula. CONSTITUTIONAL: No apparent distress. HEENT: Head is normocephalic. Pupils are equal, round. Sclerae anicteric. Mucous membranes of the mouth are moist. No JVD. No carotid bruit. CHEST EXAMINATION: Diminished bilaterally with prolonged expiratory phase. Lungs are clear to auscultation. No chest wall tenderness is noted on palpation or with deep breathing. HEART EXAMINATION: Regular rate and rhythm. S1, S2 heard. No murmurs, gallops or rub. Tachycardic. ABDOMEN: Soft, nontender. Positive bowel sounds. EXTREMITIES: 2+ peripheral pulses, no lower extremity edema and no calf tender ness. NEUROLOGIC EXAMINATION: Patient is awake, alert and oriented x3. ASSESSMENT Acute exacerbation of COPD Sinus tachycardia Leukocytosis Hypertension Pulmonary hypertension, mild PLAN Initiate on verapamil 40 mg TID and lopressor 12.5 mg BID for heart rate and blood pressure control. Discontinue aspirin as she has no documented CAD and this poses more risk than benefit for primary prevention. Recommend Pulmonary evaluation for medication optimization and evaluation of pulmonary nodule. Thank you kindly for this consultation. Nurse Practitioner note has been reviewed, I agree with a documented findings and plan of care. Patient was seen and examined. Past Medical History Past Medical History: COPD History of Any Multi-Drug Resistant Organisms: None Reported Past Surgical History: Cholecystectomy, Tubal Ligation Past Psychological History: No Psychological Hx Reported Smoking Status: Former smoker Past Alcohol Use History: None Reported Past Drug Use History: None Reported - Past Family History Mother History Unknown: Yes Medications and Allergies Home Medications Medication Instructions Recorded Confirmed Type Aspirin [facility] [Ecotrin Low Dose] 81 mg PO DAILY 09/26/19 09/26/19 History Budesonide-Formot 160-4.5 Mcg 2 puff INHALATION RT-BID 09/26/19 09/26/19 History [Symbicort 160-4.5 Mcg Inhaler] Ipratropium [facility] [Ipratropium 1 spray EA NOSTRIL BID PRN 09/26/19 09/26/19 History [facility] 0.03%] Ipratropium/Albuterol Sulfate 2 puff INHALATION RT-QID PRN 09/26/19 09/26/19 History [Combivent Respimat Inhaler] Multivitamins, Thera [Multivitamin 1 tab PO DAILY 09/26/19 09/26/19 History (formulary)] PARoxetine HCL [Paxil] 40 mg PO DAILY 09/26/19 09/26/19 History busPIRone HCL 15 mg PO BID 09/26/19 09/26/19 History Allergies Allergy/AdvReac Type Severity Reaction Status Date / Time No Known Allergies Allergy Verified 09/26/19 10:25 Physical Exam Vitals: Vital Signs Temp Pulse Pulse Pulse Resp BP Pulse Ox 09/29/19 09:27 130 H 150/80 09/29/19 09:21 98.3 F 09/29/19 08:56 105 H 09/29/19 08:44 103 H 09/29/19 08:34 104 H 96 09/29/19 07:00 101 H 16 164/81 99 09/29/19 03:34 101 H 09/29/19 03:24 95 09/29/19 01:18 97.4 F L 96 16 135/73 93 L 09/28/19 21:49 99 09/28/19 21:41 100 09/28/19 21:40 100 09/28/19 21:32 96 99 09/28/19 18:52 96 09/28/19 18:51 120 H 18 09/28/19 18:46 98.6 F 119 H 21 150/80 96 09/28/19 16:42 110 H 09/28/19 16:34 110 H 09/28/19 15:40 97.8 F 110 H 20 142/90 96 09/28/19 15:00 98.3 F 128 H 18 157/77 96 Intake and Output 09/28/19 09/29/19 09/29/19 22:59 06:59 14:59 Intake Total 120 Balance 120 Intake: Intake, IV Titration 120 Amount Sodium Chloride 0.9% 1, 120 000 ml @ 10 mls/hr IV . Q24H [facility] Rx#:[id number] Other: Voiding Method Toilet Toilet Toilet # Voids 1 1 Results 09/26/19 08:20 09/28/19 07:31 Current Medications Generic Name Dose Route Start Last Admin Trade Name Freq PRN Reason Stop Dose Admin Albuterol/Ipratropium 3 ml 09/26/19 11:12 Duoneb 0.5 Mg-3 Mg/3 Ml Soln INHALATION RT-Q4H PRN Shortness Of Breath Or Wheezing Albuterol/Ipratropium 3 ml 09/27/19 20:00 09/29/19 08:30 Duoneb 0.5 Mg-3 Mg/3 Ml Soln INHALATION 3 ml RT-Q6H [facility] Administration Azithromycin 500 mg 09/27/19 09:00 09/29/19 08:12 Zithromax PO 500 mg DAILY [facility] Administration Budesonide 1 mg 09/26/19 22:11 09/29/19 08:30 Pulmicort INHALATION 1 mg RT-BID [facility] Administration Buspirone HCl 15 mg 09/26/19 21:00 09/29/19 08:11 Buspar PO 15 mg BID [facility] Administration Enoxaparin Sodium 40 mg 09/26/19 22:15 09/29/19 08:11 Lovenox SQ 40 mg DAILY [facility] Administration Formoterol Fumarate 20 mcg 09/26/19 22:12 09/29/19 08:30 Perforomist INHALATION 20 mcg RT-BID [facility] Administration Sodium Chloride 1,000 mls @ 10 mls/hr 09/26/19 22:15 09/28/19 20:55 Saline 0.9% IV Not Given .Q24H [facility] Insulin Aspart 0 unit 09/27/19 07:30 09/29/19 12:42 Novolog SQ 2 unit ACHS [facility] Administration Protocol Methylprednisolone Sodium Succinate 20 mg 09/28/19 00:00 09/29/19 08:12 Solu-Medrol IV 20 mg Q8HR [facility] Administration Metoprolol Tartrate 12.5 mg 09/29/19 13:00 Lopressor PO BID [facility] Multivitamins 1 each 09/27/19 09:00 09/29/19 08:11 Theragran PO 1 each DAILY [facility] Administration Paroxetine HCl 40 mg 09/27/19 09:00 09/29/19 08:11 Paxil PO 40 mg DAILY [facility] Administration Verapamil HCl 40 mg 09/29/19 16:00 Isoptin PO TID [facility] Intake and Output 09/28/19 09/29/19 09/29/19 22:59 06:59 14:59 Intake Total 120 Balance 120 Intake: Intake, IV Titration 120 Amount Sodium Chloride 0.9% 1, 120 000 ml @ 10 mls/hr IV . Q24H [facility] Rx#:[id number] Other: Voiding Method Toilet Toilet Toilet # Voids 1 1 09/26/19 08:20 09/28/19 07:31
[2019-09-29] MEDS: METOPROLOL TARTRATE 12.5 MG TAB PO SCH ×2 (14:01→20:20)
[2019-09-29] MEDS: predniSONE 20 MG TAB PO SCH (14:01)
[2019-09-29] MEDS: SODIUM CHLORIDE 0.9% 1,000 ML IV SCH (16:00)
[2019-09-29 16:43] LABS: Glucose,Whole Blood 157 mg/dL (75-99)
[2019-09-29] MEDS: VERAPAMIL 40 MG TAB PO SCH ×2 (16:53→21:34)
[2019-09-29 20:17] LABS: Glucose,Whole Blood 197 mg/dL (75-99)
--- NOTE | 2019-09-29 20:52 | CONS ---
CONSULTATION This is a pulmonary/critical care consult. DATE OF SERVICE: September 29, 2019 HISTORY OF PRESENT ILLNESS: This is a lady who was actually admitted back on September 26. We were just consulted today. She is a 73-year-old female with a history of COPD. She sees Dr. Eric Gay as a primary. She has never ever seen a lung doctor. She smoked for 50+ years. Anyway, the patient comes in with complaints of shortness of breath. Her shortness of breath has been coming on for a number of days and even weeks. It is getting progressively worse. She has increasing cough as well as sputum production. She also had a temperature of 100.1 degrees. She denies any chest pain or pressure. She denies any wheezing. She states that she does have COPD. She is on Combivent and Symbicort at home. She does use oxygen at home at 2 to 3 L/minute. Her daughters are in the room with her. She apparently has a concentrator and portable device. Anyway, when she is sitting doing nothing, her shortness of breath is manageable. With any activity, she becomes profoundly more much more short of breath. She is quite short of breath. Currently has obvious conversational dyspnea as well as use of accessory muscles. Again, the patient is sitting in bed with oxygen in place with her daughters in the bedroom. MEDICATIONS: Her medications include aspirin, Symbicort 160/4.5, Atrovent nasal spray, Combivent inhaler, multivitamins, Paxil, and BuSpar. ALLERGIES: Denied. PAST MEDICAL HISTORY: Positive for primarily COPD. She denies other major medical problems. SURGICAL HISTORY: Includes tubal ligation and cholecystectomy. SOCIAL HISTORY: Positive for many years of tobacco use, probably more than 50. She quit 6 years ago. She smoked a pack a day. She denies any alcohol or illicit drug use. FAMILY HISTORY: Noncontributory. ALLERGIES: Negative. REVIEW OF SYSTEMS: CONSTITUTIONAL negative. NEUROLOGIC negative. HEENT negative. CARDIOVASCULAR negative. PULMONARY: Shortness of breath, chest tightness, wheezing, cough, chest congestion and phlegm production. GI negative. negative. RHEUMATOLOGIC negative. IMMUNOLOGIC negative. ENDOCRINOLOGIC negative. DERMATOLOGIC negative. PHYSICAL EXAMINATION: VITAL SIGNS: Current vital signs are reviewed. Temperature 98.6. Heart rate 115, respiratory rate is probably 22-24 breaths per minute. She is using accessory muscles. Blood pressure is 159/77, mean 104 and on 3 L saturations 93%. GENERAL: She appears quite tachypneic and dyspneic. She does have conversational dyspnea. No audible wheezing. She is using accessory muscles of breathing including her sternocleidomastoid muscles. HEENT examination is grossly unremarkable. Nasal O2 in place. NECK: Supple. Full range of motion. No adenopathy. CARDIOVASCULAR examination reveals regular rhythm rate. She is tachycardic. S1, S2 normal. Heart rate about 118. It is regular. LUNGS: Reveal severely diminished breath sounds. A few scattered rhonchi and expiratory wheezes are noted. There is prolongation. ABDOMEN: Soft. Bowel sounds are heard. EXTREMITIES reveal very mild edema. SKIN: Without rash. NEUROLOGIC: Examination is brief but nonfocal. LABS: Reviewed. White count 14.6, hemoglobin 13.3, hematocrit 40.4, platelet count 174,000 PT/INR PTT normal D-dimer normal. Sodium 143, potassium 5, chloride 104, CO2 34, anion gap is 5. BUN and creatinine were 22 and 0.74. AST 82, ALT 78. The rest of the labs look okay. Influenza studies were negative. Based on her bicarbonate concentration or CO2 of 34, her baseline PaCO2 is expected to be 59+/- 2 mmHg. Hence, she has a CO2 retainer and likely has pretty severe emphysema. IMAGING PROCEDURE: A chest x-ray was done on the day of admission. Shows evidence of advanced emphysema. The CT angiogram was done. It showed no evidence of pulmonary embolism. There was evidence of peribronchial cuffing mucous plugging in the lingula and right lower lobe. There is also sub solid pulmonary nodule. Given these findings, a follow-up CT scan was recommended in 3 months. Medications are reviewed. Currently, the patient is on Zithromax 500 mg a day, Pulmicort 1 mg, Lovenox, BuSpar, formoterol, updrafts, prednisone 40 mg a day. ASSESSMENT: 1. Chronic obstructive pulmonary disease exacerbation in a preop patient with likely advanced chronic obstructive pulmonary disease/emphysema. 2. Chronic hypercapnic respiratory failure. 3. Chronic hypoxemic respiratory failure. 4. Previous history of heavy tobacco use. 5. Sub solid pulmonary nodule, right lung, which needs followup. PLAN: The patient's medications appear to be appropriate. I will not make any changes at this time. Additional recommendations and suggestions are forthcoming. Prognosis is guarded. We will continue to follow. She will need follow up for the nodule in the right lower lobe. We will discuss this with her when we see her tomorrow. MMMICHELET / IJN: [id number] /
--- NOTE | 2019-09-29 23:02 | P.PN ---
Progress Note - Text Progress Note Date: 09/29/19 Chief Complaint: Short of breath Interval history: This is a very pleasant 73-year-old patient of Dr. Eric Taylor. Several family members are present to her. Patient did smoke for many years stopped about 6 years ago. Has a known diagnosis of COPD. Patient 3 days ago started out with a sore throat and progressively became worse. Patient started coughing started bringing up yellow sputum. Fever at about 101. Wheezing tired. At home patient normally uses 2 L of oxygen. Her oxygen company told her to increase the oxygen to 3 L when she habits. Appetite is gone down. Tired rundown. Admitted for the same. PE was ruled out. Chest x-ray did not show any obvious infiltrate. Patient been living with her daughter. She has always been a small eater.. Has lost some weight in the last 1 year close to 15 pounds admitted with acute severe COPD exacerbation, acute tracheobronchitis, acute hypoxic respiratory failure. Today-imaging somewhat better. Up to the bathroom. Less anxious. less tremors.heart rate is still up to 120s. Ordered EKG. Did show sinus tachycardia. Daughter the bedside. Review of systems: Was done for constitutional, cardiovascular, GI, pulmonary. relevant finding as above Active Medications Albuterol/Ipratropium (Duoneb 0.5 Mg-3 Mg/3 Ml Soln) 3 ml INHALATION RT-Q4H PRN PRN Reason: Shortness Of Breath Or Wheezing Albuterol/Ipratropium (Duoneb 0.5 Mg-3 Mg/3 Ml Soln) 3 ml INHALATION RT-Q6H [facility] Last Admin: 09/29/19 19:30 Dose: 3 ml Documented by: Azithromycin (Zithromax) 500 mg PO DAILY [facility] Last Admin: 09/29/19 08:12 Dose: 500 mg Documented by: Budesonide (Pulmicort) 1 mg INHALATION RT-BID [facility] Last Admin: 09/29/19 19:30 Dose: 1 mg Documented by: Buspirone HCl (Buspar) 15 mg PO BID [facility] Last Admin: 09/29/19 20:25 Dose: 15 mg Documented by: Enoxaparin Sodium (Lovenox) 40 mg SQ DAILY [facility] Last Admin: 09/29/19 08:11 Dose: 40 mg Documented by: Formoterol Fumarate (Perforomist) 20 mcg INHALATION RT-BID [facility] Last Admin: 09/29/19 19:48 Dose: 20 mcg Documented by: Sodium Chloride (Saline 0.9%) 1,000 mls @ 10 mls/hr IV .Q24H [facility] Last Admin: 09/29/19 16:00 Dose: 10 mls/hr Documented by: Insulin Aspart (Novolog) 0 unit SQ ACHS [facility]; Protocol Last Admin: 09/29/19 20:19 Dose: 2 unit Documented by: Metoprolol Tartrate (Lopressor) 12.5 mg PO BID [facility] Last Admin: 09/29/19 20:20 Dose: 12.5 mg Documented by: Multivitamins (Theragran) 1 each PO DAILY [facility] Last Admin: 09/29/19 08:11 Dose: 1 each Documented by: Paroxetine HCl (Paxil) 40 mg PO DAILY [facility] Last Admin: 09/29/19 08:11 Dose: 40 mg Documented by: Prednisone () 40 mg PO DAILY [facility] Last Admin: 09/29/19 14:01 Dose: 40 mg Documented by: Verapamil HCl (Isoptin) 40 mg PO TID [facility] Last Admin: 09/29/19 21:34 Dose: 40 mg Documented by: Physical examination: VITAL SIGNS: 97.9, 93, 16, 147 with 80, 95% on 3 L GENERAL: sitting upon a chair, more calm, EYES: Pupils equal. Conjunctiva normal. HEENT: External appearance of nose and ears normal, oral cavity grossly normal. NECK: JVD not raised; masses not palpable. HEART: First and second heart sounds are normal; no edema. LUNGS: Respiratory rate increased, slightly better air entry ABDOMEN: Soft, nontender, liver spleen not palpable, no masses palpable. PSYCH: Alert and oriented x3; mood and affect slightly anxiousl. NEUROLOGICAL: mild tremors , decreased MUSCULOSKELETAL: Loss of subcutaneous fat, evidence of OA INVESTIGATIONS, reviewed in the clinical context: Potassium 5 bun 22 creatinine 0.74 TSH 0.85 to Previous testing White count 14 was 6 hemoglobin 13.3 platelets 174 Troponin 0.028, 0.0-4, 0.020 EKG tracing personally reviewed by me-sinus tachycardia with evidence of P pulmonale Chest x-ray film personally reviewed by me-severe emphysema with a tubular heart no obvious infiltrate Chest CTA-negative for PE 2-D echo-EF 60-65%, Assessment: -Acute severe advanced emphysema exacerbation and an ex-smoker, POA, slowly improving -Acute tracheal bronchitis -Acute hypoxic up on chronic hypoxic respiratory failure from emphysema -Moderate protein calorie malnutrition decreased oral intake -Tremor secondary to bronchodilators -Sinus tachycardia from bronchodilators, steroids Plan: to make sure getting a cardiology consultation. The did add verapamil. Had lengthy talk with the patient and the daughters. They understand guarded prognosis. Switched over to oral prednisone.hopefully can be discharged to his home tomorrow.
[2019-09-30] MEDS: IPRATROPIUM-ALBUTEROL 3 ML NEB INHALATION SCH ×3 (03:24→13:38)
[2019-09-30 06:55] LABS: Glucose,Whole Blood 92 mg/dL (75-99)
[2019-09-30 07:54] VITALS: TEMP 98
[2019-09-30] MEDS: FORMOTEROL FUMARATE 20 MCG/2 ML NEBU INHALATION SCH (08:09)
[2019-09-30] MEDS: BUDESONIDE 1 MG/2 ML NEBU INHALATION SCH (08:10)
--- NOTE | 2019-09-30 10:08 | P.PN ---
Subjective HISTORY OF PRESENTING ILLNESS This is a pleasant 73-year-old female past medical history significant for COPD and former nicotine dependence. She presented with shortness of breath. We are following secondary to tachycardia. She was started on lopressor and verapamil. This has helped somewhat. Heart rates continues to up around 110 simmons sophie improved from 130 range from yesterday. The patient herself also feels much better and denies exertional palpitations. Blood pressure tolerating. This morning was 155/81. PHYSICAL EXAMINATION CONSTITUTIONAL: No apparent distress. HEENT: Head is normocephalic. Pupils are equal, round. Sclerae anicteric. Mucous membranes of the mouth are moist. No JVD. No carotid bruit. CHEST EXAMINATION: Diminished bilaterally with prolonged expiratory phase. Lungs are clear to auscultation. No chest wall tenderness is noted on palpation or with deep breathing. HEART EXAMINATION: Regular rate and rhythm. S1, S2 heard. No murmurs, gallops or rub. Tachycardic. EXTREMITIES: 2+ peripheral pulses, no lower extremity edema and no calf tenderness. ASSESSMENT Acute exacerbation of COPD Sinus tachycardia, improved Leukocytosis Hypertension Pulmonary hypertension, mild PLAN Heart rate has improved. Overall breathing is also improving. Ongoing medical management of COPD. Follow up in the office with Dr. Mayo in 2 weeks. Advised the patient and her daughters to keep a daily record of her blood pressures and heart rate at home to bring with her to the follow up visit. We will follow as needed, please feel free to call with further questions of concerns. Nurse Practitioner note has been reviewed, I agree with a documented findings and plan of care. Patient was seen and examined. Objective - Vital Signs Vital signs: Vital Signs Temp 98 F 09/30/19 07:00 Pulse 111 H 09/30/19 08:33 Resp 16 09/30/19 07:00 BP 155/81 09/30/19 07:00 Pulse Ox 97 09/30/19 08:10 Intake & Output 09/29/19 09/30/19 09/30/19 18:59 06:59 18:59 Intake Total 500 Balance 500 Intake: Intake, IV Titration 20 Amount Sodium Chloride 0.9% 1, 20 000 ml @ 10 mls/hr IV . Q24H [facility] Rx#:[id number] Oral 480 Other: Voiding Method Toilet Toilet # Voids 2 - Labs CBC & Chem 7: 09/26/19 08:20 09/28/19 07:31 Labs: Abnormal Lab Results - Last 24 Hours (Table) 09/29/19 09/29/19 09/29/19 Range/Units 11:50 16:36 20:15 POC Glucose (mg/dL) 186 H 157 H 197 H (75-99) mg/dL Microbiology - Last 24 Hours (Table) 09/26/19 08:20 Blood Culture - Preliminary Blood No Growth after 72 hours
[2019-09-30] MEDS: INSULIN ASPART (NovoLOG) 100 UNIT/ML VIAL SQ SCH ×2 (10:16→12:48)
[2019-09-30] MEDS: busPIRone HCl 5 MG TAB PO SCH (10:26)
[2019-09-30] MEDS: PARoxetine 20 MG TAB PO SCH (10:26)
[2019-09-30] MEDS: VERAPAMIL 40 MG TAB PO SCH (10:27)
[2019-09-30] MEDS: MULTIVITAMINS, THERA 1 EACH TAB PO SCH (10:27)
[2019-09-30] MEDS: METOPROLOL TARTRATE 12.5 MG TAB PO SCH (10:27)
[2019-09-30] MEDS: predniSONE 20 MG TAB PO SCH (10:29)
[2019-09-30] MEDS: ENOXAPARIN 40 MG/0.4 ML SYRINGE SQ SCH (10:30)
[2019-09-30] MEDS: AZITHROMYCIN 500 MG TAB PO SCH (10:37)
--- NOTE | 2019-09-30 11:42 | P.PN ---
Subjective Progress Note Date: 09/30/19 Principal diagnosis: Acute exacerbation of chronic obstructive pulmonary disease The patient is seen today 09/30/2019 in follow-up on the regular medical floor. She is currently sitting up in a chair at the bedside. Awake and alert in no acute distress. Breathing easier today as compared to yesterday. Maintaining O2 saturations in the mid 90s on 2 L/m per nasal cannula. She's afebrile. Blood culture reveals no growth. She is maintained on azithromycin, DuoNeb inhalations, Pulmicort and Perforomist inhalations, prednisone. Objective - Vital Signs Vital signs: Vital Signs Temp 98 F 09/30/19 07:00 Pulse 111 H 09/30/19 08:33 Resp 16 09/30/19 07:00 BP 155/81 09/30/19 07:00 Pulse Ox 97 09/30/19 08:10 Intake & Output 09/29/19 09/30/19 09/30/19 18:59 06:59 18:59 Intake Total 500 Balance 500 Intake: Intake, IV Titration 20 Amount Sodium Chloride 0.9% 1, 20 000 ml @ 10 mls/hr IV . Q24H [facility] Rx#:[id number] Oral 480 Other: Voiding Method Toilet Toilet # Voids 2 - Exam GENERAL EXAM: Alert, active, pleasant 73-year-old female patient, comfortable in no apparent distress. HEAD: Normocephalic. EYES: Normal reaction of pupils, equal size. NOSE: Clear with pink turbinates. THROAT: No erythema or exudates. NECK: No masses, no JVD. CHEST: No chest wall deformity. LUNGS: Equal air entry with bilateral end expiratory wheeze, diminished. CVS: S1 and S2 normal with no audible murmur, regular rhythm. ABDOMEN: No hepatosplenomegaly, normal bowel sounds, no guarding or rigidity. SPINE: No scoliosis or deformity SKIN: No rashes CENTRAL NERVOUS SYSTEM: No focal deficits, tone is normal in all 4 extremities. EXTREMITIES: There is no peripheral edema. No clubbing, no cyanosis. Peripheral pulses are intact. - Labs CBC & Chem 7: 09/26/19 08:20 09/28/19 07:31 Labs: Abnormal Lab Results - Last 24 Hours (Table) 09/29/19 09/29/19 09/29/19 Range/Units 11:50 16:36 20:15 POC Glucose (mg/dL) 186 H 157 H 197 H (75-99) mg/dL Microbiology - Last 24 Hours (Table) 09/26/19 08:20 Blood Culture - Preliminary Blood No Growth after 96 hours Assessment and Plan Assessment: #1 Acute exacerbation of chronic obstructive pulmonary disease. #2 Acute hypoxemic respiratory failure secondary to above. #3 History of 50 year pack per day smoking however quit 6 years ago. Plan: The patient was seen and evaluated by Dr. Fregoso. She is improved today compared to yesterday. She will continue her bronchodilators. Complete prednisone taper. She is offered an appointment in our office for follow-up 1-2 weeks after discharge. We will see her here on an as-needed basis. I, the cosigning physician, performed a history & physical examination of the patient. Lungs sounds bilateral end expiratory wheeze, diminished Maintaining good O2 saturations in the 90s on 2 L/m per nasal cannula. I discussed the assessment and plan of care with my nurse practitioner, Kay Pinon. I attest to the above note as dictated by her.
[2019-09-30 11:54] LABS: Glucose,Whole Blood 173 mg/dL (75-99)
[2019-09-30 16:17] VITALS: BP 146/74; PULSE 98; RESP 12
--- NOTE | 2019-10-03 14:48 | P.DS ---
Providers Date of admission: 09/26/19 11:28 Expected date of discharge: 09/30/19 Attending physician: Brando Vazquez Consults: 09/29/19 10:13 Consult Physician Routine Consulting Provider: Melissa Watts Consult Reason/Comments: elevated heart rate,EKG results Do you want consulting provider notified?: Yes 09/29/19 12:37 Consult Physician Routine Consulting Provider: Tim Fregoso Consult Reason/Comments: COPD exacerbation Do you want consulting provider notified?: Yes Primary care physician: [facility] Course: Chief Complaint: Short of breath Hospital course: This is a very pleasant 73-year-old patient of Dr. Eric Taylor. Patient did smoke for many years stopped about 6 years ago. Has a known diagnosis of COPD. Patient 3 days ago started out with a sore throat and progressively became worse. Patient started coughing started bringing up yellow sputum. Fever at about 101. Wheezing tired. At home patient normally uses 2 L of oxygen. Her oxygen company told her to increase the oxygen to 3 L when she ambulates.. Appetite is gone down. Tired rundown. Admitted for the same. PE was ruled out. Chest x-ray did not show any obvious infiltrate. Patient been living with her daughter. She has always been a small eater.. Has lost some weight in the last 1 year close to 15 pounds admitted with acute severe COPD exacerbation, acute tracheobronchitis, acute hypoxic respiratory failure. Today-doing better. Does not have frequent lung reserve's. Eating better. Family the bedside. Care was discussed. Questions were answered. Did encourage breathing exercising regularly using the I-S. Patient did have increase heart rate felt to be sinus tachycardia. Seen by cardiology. Verapamil and Lopressor was added. Home oxygen to continue. Discussion and discharge planning more than 35 minutes Consultation: from pulmonary Dr. Monae watts from cardiology Physical examination: VITAL SIGNS: 98, 110, 16, 155/81, 97% on 2 L GENERAL: sitting upon a chair, breathing better, EYES: Pupils equal. Conjunctiva normal. HEENT: External appearance of nose and ears normal, oral cavity grossly normal. NECK: JVD not raised; masses not palpable. HEART: First and second heart sounds are normal; no edema. LUNGS: Respiratory rate increased, slightly better air entry ABDOMEN: Soft, nontender, liver spleen not palpable, no masses palpable. PSYCH: Alert and oriented x3; mood and affect slightly anxiousl. MUSCULOSKELETAL: Loss of subcutaneous fat, evidence of OA INVESTIGATIONS, reviewed in the clinical context: Potassium 5 bun 22 creatinine 0.74 TSH 0.85 to Previous testing White count 14 was 6 hemoglobin 13.3 platelets 174 Troponin 0.028, 0.0-4, 0.020 EKG tracing personally reviewed by me-sinus tachycardia with evidence of P pulmonale Chest x-ray film personally reviewed by me-severe emphysema with a tubular heart no obvious infiltrate Chest CTA-negative for PE 2-D echo-EF 60-65%, Assessment: -Acute severe advanced emphysema exacerbation and an ex-smoker, POA, -Acute tracheal bronchitis -Acute on chronic hypoxic respiratory failure from emphysema -Moderate protein calorie malnutrition decreased oral intake -Tremor secondary to bronchodilators -Sinus tachycardia from bronchodilators, steroids Disposition: Home with daughter, Patient Condition at Discharge: Stable Plan - Discharge Summary Discharge Rx Participant: Yes New Discharge Prescriptions: New Ipratropium-Albuterol Nebulize [Duoneb 0.5 mg-3 mg/3 ml Soln] 3 ml INHALATION QID #120 ampul.neb Verapamil [Isoptin] 40 mg PO TID #90 tab Metoprolol Tartrate [Lopressor] 12.5 mg PO BID #60 tab predniSONE 10 mg PO DAILY #30 tab Continue Multivitamins, Thera [Multivitamin (formulary)] 1 tab PO DAILY Budesonide-Formot 160-4.5 Mcg [Symbicort 160-4.5 Mcg Inhaler] 2 puff INHALATION RT-BID busPIRone HCL 15 mg PO BID PARoxetine HCL [Paxil] 40 mg PO DAILY Discontinued Ipratropium/Albuterol Sulfate [Combivent Respimat Inhaler] 2 puff INHALATION RT-QID PRN PRN Reason: Shortness Of Breath Aspirin EC [Ecotrin Low Dose] 81 mg PO DAILY Ipratropium [place] [Ipratropium [place] 0.03%] 1 spray EA NOSTRIL BID PRN PRN Reason: Congestion Discharge Medication List Budesonide-Formot 160-4.5 Mcg [Symbicort 160-4.5 Mcg Inhaler] 2 puff INHALATION RT-BID 09/26/19 [History] Multivitamins, Thera [Multivitamin (formulary)] 1 tab PO DAILY 09/26/19 [History] PARoxetine HCL [Paxil] 40 mg PO DAILY 09/26/19 [History] busPIRone HCL 15 mg PO BID 09/26/19 [History] Ipratropium-Albuterol Nebulize [Duoneb 0.5 mg-3 mg/3 ml Soln] 3 ml INHALATION QID #120 ampul.neb 09/30/19 [Rx] Metoprolol Tartrate [Lopressor] 12.5 mg PO BID #60 tab 09/30/19 [Rx] Verapamil [Isoptin] 40 mg PO TID #90 tab 09/30/19 [Rx] predniSONE 10 mg PO DAILY #30 tab 09/30/19 [Rx] Follow up Appointment(s)/Referral(s): Melissa Watts MD [STAFF PHYSICIAN] - 10/17/19 2:00 pm (At [facility]) [facility] [NON-STAFF] - [facility], [NON-STAFF] - Erci Gay MD [Primary Care Provider] - 10/04/19 1:00 pm Patient Instructions/Handouts: COPD (Chronic Obstructive Pulmonary Disease) (DC) Activity/Diet/Wound Care/Special Instructions: [facility] will deliver nebulizer to bedside before discharge. Discharge Disposition: HOME WITH HOME HEALTH SERVICES
== END 2019-09-30 16:32 | disposition home health service (06) | DRG 190 ==
LOC: EC 07:46 → 4SSUR 11:28
PROVIDERS: ADMIT Hospitalist; ATTEND Hospitalist
DX: J43.9 Emphysema, unspecified (principal); J96.21 Acute and chronic respiratory failure with hypoxia; J96.22 Acute and chronic respiratory failure with hypercapnia; E44.0 Moderate protein-calorie malnutrition; Z68.1 Body mass index [BMI] 19.9 or less, adult; I27.20 Pulmonary hypertension, unspecified; I07.1 Rheumatic tricuspid insufficiency; J20.9 Acute bronchitis, unspecified; I10 Essential (primary) hypertension; R00.0 Tachycardia, unspecified; R25.1 Tremor, unspecified; R91.1 Solitary pulmonary nodule; F41.9 Anxiety disorder, unspecified; F32.9 Major depressive disorder, single episode, unspecified; D72.829 Elevated white blood cell count, unspecified; T48.6X5A Adverse effect of antiasthmatics, initial encounter; T38.0X5A Adverse effect of glucocorticoids and synthetic analogues, initial encounter; Z79.51 Long term (current) use of inhaled steroids; Z79.82 Long term (current) use of aspirin; Z79.899 Other long term (current) drug therapy; Z99.81 Dependence on supplemental oxygen; Z90.49 Acquired absence of other specified parts of digestive tract; Z98.51 Tubal ligation status; Z87.891 Personal history of nicotine dependence
CPT/HCPCS: 36415; 71046; 71275; 80053; 82330; 83605; 83735; 83880; 84443; 84484; 85025; 85379; 85610; 85730; 87040; 87502; 93005; 93306; 94640; 94760; 96361; 96365; 96375; 99285

== ENCOUNTER 2020-11-27 05:14 | Observation (INO) | payer MEDICARE, BC ==
--- NOTE | 2020-11-27 05:22 | ED ---
Fall HPI - General Stated Complaint: Fall Time Seen by Provider: 11/27/20 05:22 Source: RN notes reviewed, old records reviewed, Caregiver Mode of arrival: EMS Limitations: altered mental status - History of Present Illness Initial Comments: This is a 75-year-old female who was found out found down in her room after fall. Fall from standing, no blood thinners. Patient's mildly increased increasingly altered from normal baseline. Patient herself is no real current complaints apparently was found to have low oxygen. Patient does have history of COPD. But again denies any complete significant pain. Patient did have a low oxygen on arrival per EMS MD Complaint: fall -: days(s) Fall From: standing When Fall Occurred: 1 hour [employer] Fall Witnessed: yes, by family Place Fall Occurred: home Loss of Consciousness: none Prolonged Down Time?: no Symptoms Prior to Fall: none Severity: moderate Severity scale (1-10): 3 Context: tripped/slipped Associated Symptoms: denies - Related Data Home Medications Medication Instructions Recorded Confirmed Budesonide-Formot 160-4.5 Mcg 1 puff INHALATION RT-DAILY 09/26/19 11/27/20 [Symbicort 160-4.5 Mcg Inhaler] PARoxetine HCL [Paxil] 40 mg PO DAILY 09/26/19 11/27/20 busPIRone HCL 15 mg PO BID 09/26/19 11/27/20 Albuterol Nebulized [Ventolin 2.5 mg INHALATION RT-QID 11/27/20 11/27/20 Nebulized] Ipratropium-Albuterol Nebulize 3 ml INHALATION RT-QID 11/27/20 11/27/20 [Duoneb 0.5 mg-3 mg/3 ml Soln] Metoprolol Tartrate [Lopressor] 12.5 mg PO BID 11/27/20 11/27/20 predniSONE [Deltasone] 40 mg PO DAILY 11/27/20 11/27/20 Previous Rx's Medication Instructions Recorded Verapamil [Isoptin] 40 mg PO TID #90 tab 09/30/19 Allergies Allergy/AdvReac Type Severity Reaction Status Date / Time No Known Allergies Allergy Verified 11/27/20 07:35 Review of Systems ROS Statement: Those systems with pertinent positive or pertinent negative responses have been documented in the HPI. ROS Other: All systems not noted in ROS Statement are negative. Past Medical History Past Medical History: COPD History of Any Multi-Drug Resistant Organisms: None Reported Past Surgical History: Cholecystectomy, Tubal Ligation Past Psychological History: No Psychological Hx Reported Past Alcohol Use History: None Reported Past Drug Use History: None Reported - Past Family History Mother History Unknown: Yes General Exam General appearance: alert, in no apparent distress Head exam: Present: atraumatic, normocephalic, normal inspection Eye exam: Present: normal appearance, PERRL, EOMI. Absent: scleral icterus, conjunctival injection, periorbital swelling ENT exam: Present: normal exam, mucous membranes moist Neck exam: Present: normal inspection. Absent: tenderness, meningismus, lymphadenopathy Respiratory exam: Present: respiratory distress, wheezes, accessory muscle use, decreased breath sounds, prolonged expiratory. Absent: rales, rhonchi, stridor Cardiovascular Exam: Present: normal rhythm, tachycardia, normal heart sounds. Absent: systolic murmur, diastolic murmur, rubs, gallop, clicks GI/Abdominal exam: Present: soft, normal bowel sounds. Absent: distended, tenderness, guarding, rebound, rigid Extremities exam: Present: normal inspection, full ROM, normal capillary refill. Absent: tenderness, pedal edema, joint swelling, calf tenderness Back exam: Present: normal inspection Neurological exam: Present: alert, oriented X3, CN II-XII intact Psychiatric exam: Present: normal affect, normal mood Skin exam: Present: warm, dry, intact, normal color. Absent: rash Course Vital Signs 11/27/20 11/27/20 11/27/20 05:16 06:26 07:05 Temperature 98.1 F Pulse Rate 117 H 98 98 Respiratory 20 29 H Rate Blood Pressure 147/98 145/66 O2 Sat by Pulse 98 95 Oximetry 11/27/20 11/27/20 07:26 07:50 Temperature Pulse Rate 100 96 Respiratory 16 Rate Blood Pressure 141/67 O2 Sat by Pulse 99 Oximetry - Reevaluation(s) Reevaluation #1: 11/27/20 06:05 Medical record is reviewed Patient continues to be weak here in the ER shortness breath After fluid resuscitation patient is unable to urinate secondary to severe dehydration Patient informed of findings as well as family here in the ER Medical Decision Making - Medical Decision Making 75 female to the ER for evaluation patient still feels very weak, we will admit for hydration and breathing treatments, suspect COPD hypoxia and weakness - Lab Data Result diagrams: 11/27/20 05:52 11/27/20 05:52 Lab Results 11/27/20 11/27/20 11/27/20 Range/Units 05:52 05:52 05:52 WBC 14.5 H (3.8-10.6) k/uL RBC 4.75 (3.80-5.40) m/uL Hgb 14.8 (11.4-16.0) gm/dL Hct 45.6 (34.0-46.0) % MCV 95.9 (80.0-100.0) fL MCH 31.1 (25.0-35.0) pg MCHC 32.4 (31.0-37.0) g/dL RDW 11.6 (11.5-15.5) % Plt Count 243 (150-450) k/uL MPV 7.2 Neutrophils % 85 % Lymphocytes % 5 % Monocytes % 6 % Eosinophils % 1 % Basophils % 2 % Neutrophils # 12.3 H (1.3-7.7) k/uL Lymphocytes # 0.8 L (1.0-4.8) k/uL Monocytes # 0.9 (0-1.0) k/uL Eosinophils # 0.2 (0-0.7) k/uL Basophils # 0.2 (0-0.2) k/uL PT (9.0-12.0) sec INR (<1.2) APTT (22.0-30.0) sec Sodium 141 (137-145) mmol/L Potassium 4.7 (3.5-5.1) mmol/L Chloride 98 (98-107) mmol/L Carbon Dioxide 40 H (22-30) mmol/L Anion Gap 3 mmol/L BUN 29 H (7-17) mg/dL Creatinine 0.99 (0.52-1.04) mg/dL Est GFR (CKD-EPI)AfAm 65 (>60 ml/min/1.73 sqM) Est GFR (CKD-EPI)NonAf 56 (>60 ml/min/1.73 sqM) Glucose 130 H (74-99) mg/dL Calcium 9.5 (8.4-10.2) mg/dL Phosphorus 4.3 (2.5-4.5) mg/dL Magnesium 2.0 (1.6-2.3) mg/dL Total Bilirubin 0.5 (0.2-1.3) mg/dL AST 48 H (14-36) U/L ALT 31 (4-34) U/L Alkaline Phosphatase 70 (38-126) U/L Creatine Kinase 42 (30-135) U/L Troponin I 0.028 (0.000-0.034) ng/mL Total Protein 6.7 (6.3-8.2) g/dL Albumin 3.7 (3.5-5.0) g/dL 11/27/20 Range/Units 06:23 WBC (3.8-10.6) k/uL RBC (3.80-5.40) m/uL Hgb (11.4-16.0) gm/dL Hct (34.0-46.0) % MCV (80.0-100.0) fL MCH (25.0-35.0) pg MCHC (31.0-37.0) g/dL RDW (11.5-15.5) % Plt Count (150-450) k/uL MPV Neutrophils % % Lymphocytes % % Monocytes % % Eosinophils % % Basophils % % Neutrophils # (1.3-7.7) k/uL Lymphocytes # (1.0-4.8) k/uL Monocytes # (0-1.0) k/uL Eosinophils # (0-0.7) k/uL Basophils # (0-0.2) k/uL PT 10.1 (9.0-12.0) sec INR 0.9 (<1.2) APTT 19.3 L (22.0-30.0) sec Sodium (137-145) mmol/L Potassium (3.5-5.1) mmol/L Chloride (98-107) mmol/L Carbon Dioxide (22-30) mmol/L Anion Gap mmol/L BUN (7-17) mg/dL Creatinine (0.52-1.04) mg/dL Est GFR (CKD-EPI)AfAm (>60 ml/min/1.73 sqM) Est GFR (CKD-EPI)NonAf (>60 ml/min/1.73 sqM) Glucose (74-99) mg/dL Calcium (8.4-10.2) mg/dL Phosphorus (2.5-4.5) mg/dL Magnesium (1.6-2.3) mg/dL Total Bilirubin (0.2-1.3) mg/dL AST (14-36) U/L ALT (4-34) U/L Alkaline Phosphatase (38-126) U/L Creatine Kinase (30-135) U/L Troponin I (0.000-0.034) ng/mL Total Protein (6.3-8.2) g/dL Albumin (3.5-5.0) g/dL Disposition Clinical Impression: Fall, Weakness, COPD exacerbation, Dehydration, Hypoxia Disposition: ADMITTED IP TO THIS HOSP Condition: Fair Is patient prescribed a controlled substance at d/c from ED?: No
[2020-11-27] MEDS ORDERED: SODIUM CHLORIDE 0.9% 1,000 ML IV STA (05:29)
[2020-11-27] MEDS ORDERED: methylPREDNISolone SOD SUCCI 125 MG/2 ML VIAL IV STA (05:51)
[2020-11-27] MEDS ORDERED: IPRATROPIUM-ALBUTEROL 3 ML NEB INHALATION STA (05:51)
--- NOTE | 2020-11-27 05:52 | XR ---
EXAM: XR Chest, 1 View CLINICAL HISTORY: ITS.REASON XR Reason: fall TECHNIQUE: Frontal view of the chest. COMPARISON: No relevant prior studies available. FINDINGS: Lungs: Unremarkable. No consolidation. The pulmonary vasculature demonstrates no significant radiographic abnormality. Pleural space: Unremarkable. No pneumothorax. No large pleural effusion. Heart: Unremarkable. No cardiomegaly. Mediastinum: No mediastinal widening or tracheal deviation identified. Bones/joints: Unremarkable. Other findings: No radiographic evidence for acute traumatic injury. IMPRESSION: No acute traumatic injury identified radiographically involving the chest/thorax.
--- NOTE | 2020-11-27 05:53 | XR ---
EXAM: XR Pelvis, 1 or 2 Views CLINICAL HISTORY: ITS.REASON XR Reason: fall TECHNIQUE: Frontal view of the pelvis. COMPARISON: No relevant prior studies available. FINDINGS: Bones/joints: Regional diffuse osteopenia. The femoral heads overlie the acetabula bilaterally in the frontal projection. The pelvic bones. Tach. No acute fracture. No dislocation. Soft tissues: No significant overlying soft tissue abnormality identified radiographically. No radiopaque foreign body. Gastrointestinal tract: Nonspecific bowel gas pattern in the pelvis. IMPRESSION: No acute osseous traumatic injury or abnormal alignment involving the pelvis.
[2020-11-27 05:58] LABS: Basophils # (A) 0.2 k/uL (0-0.2); Basophils % (A) 2 %; Eosinophils # (A) 0.2 k/uL (0-0.7); Eosinophils % (A) 1 %; HCT 45.6 % (34.0-46.0); HGB 14.8 gm/dL (11.4-16.0); Lymphocytes # (A) 0.8 k/uL (1.0-4.8); Lymphocytes % (A) 5 %; MCH 31.1 pg (25.0-35.0); MCHC 32.4 g/dL (31.0-37.0); MCV 95.9 fL (80.0-100.0); Mean Platelet Volume 7.2; Monocytes # (A) 0.9 k/uL (0-1.0); Monocytes % (A) 6 %; Neutrophils # (A) 12.3 k/uL (1.3-7.7); Neutrophils % (A) 85 %; Platelet Count 243 k/uL (150-450); RBC 4.75 m/uL (3.80-5.40); RDW 11.6 % (11.5-15.5); WBC 14.5 k/uL (3.8-10.6)
--- NOTE | 2020-11-27 06:07 | CT ---
EXAM: CT Head Without Intravenous Contrast CLINICAL HISTORY: ITS.REASON CT Reason: fall TECHNIQUE: Axial computed tomography images of the head/brain without intravenous contrast. CTDI is 26.25 mGy and DLP is 681.05 mGy-cm. This CT exam was performed using one or more of the following dose reduction techniques: automated exposure control, adjustment of the mA and/or kV according to patient size, and/or use of iterative reconstruction technique. COMPARISON: No relevant prior studies available. FINDINGS: Limitations: There is mild motion artifact, which degrades image quality on multiple image slices. Brain: No acute intracranial hemorrhage. Significant periventricular and subcortical deep white matter hypodense changes are noted and are presumed microvascular in nature. Asymmetric encephalomalacia involving the left occipital lobe without significant mass effect, suggesting an acute process. No significant mass effect. Ventricles: No developing ventriculomegaly or midline shift. Bones/joints: Unremarkable. No acute fracture. Soft tissues: No significant overlying soft tissue abnormality identified radiographically. No radiopaque foreign body. Sinuses: Unremarkable as visualized. No acute sinusitis. Mastoid air cells: Unremarkable as visualized. No mastoid effusion. IMPRESSION: No acute intracranial process identified. Incidental extensive underlying deep white matter hypodense changes are presumed microvascular disease. Subacute to chronic left occipital encephalomalacia. EXAM: CT Cervical Spine Without Intravenous Contrast CLINICAL HISTORY: ITS.REASON CT Reason: fall TECHNIQUE: Axial computed tomography images of the cervical spine without intravenous contrast. CTDI is 26.25 mGy and DLP is 681.05 mGy-cm. This CT exam was performed using one or more of the following dose reduction techniques: automated exposure control, adjustment of the mA and/or kV according to patient size, and/or use of iterative reconstruction technique. COMPARISON: No relevant prior studies available. FINDINGS: Limitations: There is motion artifact throughout the examination, which degrades image quality on multiple image slices. Vertebrae: The vertebral bodies are intact without acute osseous traumatic injury. No anterolisthesis or retrolisthesis is identified. The facet joints are well aligned without subluxation or dislocation. The spinous processes are intact. Facet hypertrophic changes are noted at multiple levels. Discs/spinal canal/neural foramina: Disc space narrowing with marginal hypertrophic osteophyte changes is most notable at C5-6 level. No severe osseous canal stenosis. Soft tissues: Unremarkable. Lung apices: Apical capping with extensive centrilobular emphysematous changes noted. No evidence for significant acute traumatic injury identified radiographically. IMPRESSION: No acute osseous traumatic injury or significant abnormal alignment involving the cervical spine, accounting for motion artifact throughout the examination.
[2020-11-27 06:16] LABS: Albumin 3.7 g/dL (3.5-5.0); Calcium 9.5 mg/dL (8.4-10.2); Phosphorus 4.3 mg/dL (2.5-4.5); Potassium 4.7 mmol/L (3.5-5.1); Total Bilirubin 0.5 mg/dL (0.2-1.3); Total Protein 6.7 g/dL (6.3-8.2)
[2020-11-27 06:47] LABS: INR 0.9 (<1.2); Prothrombin Time 10.1 sec (9.0-12.0)
[2020-11-27 06:52] LABS: Partial Thromboplastin Time 19.3 sec (22.0-30.0)
[2020-11-27] MEDS: SODIUM CHLORIDE 0.9% 1,000 ML IV SCH ×2 (07:35→21:52)
[2020-11-27] MEDS: IPRATROPIUM-ALBUTEROL 3 ML NEB INHALATION SCH ×7 (08:10→20:57)
[2020-11-27] MEDS ORDERED: ACETAMINOPHEN TAB 325 MG TAB PO PRN (08:37)
--- NOTE | 2020-11-27 08:48 | P.HPIM ---
History of Present Illness H&P Date: 11/27/20 This is a 75-year-old female with past medical history noted below significant for severe COPD on home O2 who presented to the emergency room after she was found on the floor by her daughter at home. Patient is awake and alert and is a very poor historian. Most of the history was obtained by her daughter that I spoke to on the phone. She informed me that around 4:30 in the morning he heard a loud noise and found her mom on the floor wrapped with her comforter. She said that her mom was without her oxygen. She appeared very confused and the daughter called EMS. There was no loss of consciousness or syncope reported. Patient was brought into the emergency room and underwent extensive imaging that was all negative. Her mentation is improving. Her oxygen saturation initially was 60% on 3 L but that recovered quickly and currently she is around 90%. At the time of my evaluation she was awake and alert. She was oriented to herself and to the place. She appears to be a poor historian. Her daughter informed me that her cognition has been declining over the last few months. Patient herself denies any shortness of breath or cough. No fevers or chills. No other complaints otherwise. Review of Systems Review of system: 14 points review of systems were obtained and were negative except to what were mentioned in the HPI. Past Medical History Past Medical History: COPD History of Any Multi-Drug Resistant Organisms: None Reported Past Surgical History: Cholecystectomy, Tubal Ligation Past Anesthesia/Blood Transfusion Reactions: No Reported Reaction Past Psychological History: No Psychological Hx Reported Smoking Status: Former smoker Past Alcohol Use History: None Reported Past Drug Use History: None Reported - Past Family History Mother History Unknown: Yes Medications and Allergies Home Medications Medication Instructions Recorded Confirmed Type Budesonide-Formot 160-4.5 Mcg 1 puff INHALATION RT-DAILY 09/26/19 11/27/20 History [Symbicort 160-4.5 Mcg Inhaler] PARoxetine HCL [Paxil] 40 mg PO DAILY 09/26/19 11/27/20 History busPIRone HCL 15 mg PO BID 09/26/19 11/27/20 History Verapamil [Isoptin] 40 mg PO TID #90 tab 09/30/19 11/27/20 Rx Albuterol Nebulized [Ventolin 2.5 mg INHALATION RT-QID 11/27/20 11/27/20 History Nebulized] Ipratropium-Albuterol Nebulize 3 ml INHALATION RT-QID 11/27/20 11/27/20 History [Duoneb 0.5 mg-3 mg/3 ml Soln] Metoprolol Tartrate [Lopressor] 12.5 mg PO BID 11/27/20 11/27/20 History predniSONE [Deltasone] 40 mg PO DAILY 11/27/20 11/27/20 History Allergies Allergy/AdvReac Type Severity Reaction Status Date / Time No Known Allergies Allergy Verified 11/27/20 07:35 Physical Exam Vitals: Vital Signs Temp Pulse Pulse Resp BP BP Pulse Ox 11/27/20 08:21 98.1 F 99 20 118/54 96 11/27/20 07:50 96 16 141/67 99 11/27/20 07:26 100 11/27/20 07:05 98 11/27/20 06:26 98 29 H 145/66 95 11/27/20 05:16 98.1 F 117 H 20 147/98 98 Intake and Output 11/26/20 11/27/20 11/27/20 22:59 06:59 14:59 Other: # Voids 0 Weight 52.163 kg 52.163 kg General: The patient is awake and alert, in no distress. She appears cachectic Eye: there is normal conjunctiva bilaterally. Neck: The neck is supple, there is no JVD. Cardiovascular: Normal S1-S2, no S3-S4, there is a systolic murmur Respiratory: Lungs very diminished with minimal air movement and no obvious wheezing Gastrointestinal: Abdomen is soft, nontender Musculoskeletal: There is no pedal edema. Neurological:. Speech is normal. Skin: Skin is warm and dry Results CBC & Chem 7: 11/27/20 05:52 11/27/20 05:52 Labs: Abnormal Lab Results - Last 24 Hours (Table) 11/27/20 11/27/20 11/27/20 Range/Units 05:52 05:52 06:23 WBC 14.5 H (3.8-10.6) k/uL Neutrophils # 12.3 H (1.3-7.7) k/uL Lymphocytes # 0.8 L (1.0-4.8) k/uL APTT 19.3 L (22.0-30.0) sec Carbon Dioxide 40 H (22-30) mmol/L BUN 29 H (7-17) mg/dL Glucose 130 H (74-99) mg/dL AST 48 H (14-36) U/L Thrombosis Risk Factor Assmnt - Choose All That Apply Other Risk Factors: Yes Each Risk Factor Represents 3 Points: Age 75 years or older Thrombosis Risk Factor Assessment Total Risk Factor Score: 3 Thrombosis Risk Factor Assessment Level: Moderate Risk Assessment and Plan Assessment: This is a 75-year-old female who presented to the emergency after she was found on the floor at home by her daughter. Patient was evaluated in the ER and placed on observation for further management of her medical problems noted below. 1. Fall: Most likely mechanical. No reported syncope. Extensive imaging in e ER including computed tomography scan of the head and cervical spine, pelvis and chest x-ray unremarkable. I would consult physical therapy. I would obtain echocardiogram for further evaluation of the systolic murmur. 2. Acute on chronic hypoxic respiratory failure, oxygen saturations improved. Currently on 3 L of oxygen. 3. Acute COPD exacerbation: Started on IV Solu-Medrol by ER provider. We will continue duo nebs and inhaled steroid. Patient was maintained on 40 mg of prednisone at home by her visiting physician. We'll plan on a long tapering course of prednisone. 4. Underlying cognitive impairment/dementia 5. CODE STATUS discussed with her daughter over the phone. For now she will have to be a full code awaiting further discussion with family 6. DVT prophylaxis with subcu heparin
[2020-11-27] MEDS: SYMBICORT 160-4.5 MCG INHALER INHALATION SCH (08:54)
--- NOTE | 2020-11-27 10:11 | ECHOF ---
Referral Reason:Systolic murmur, presyncope MEASUREMENTS -------- HEIGHT: 167.6 cm WEIGHT: 52.2 kg BP: 118/54 RVIDd: 3.0 cm (< 3.3) IVSd: 1.1 cm (0.6 - 1.1) LVIDd: 2.7 cm (3.9 - 5.3) LVPWd: 1.2 cm (0.6 - 1.1) IVSs: 1.6 cm LVIDs: 1.9 cm LVPWs: 1.6 cm LA Diam: 2.7 cm (2.7 - 3.8) LAESV Index (A-L): 20.77 ml/m Ao Diam: 3.2 cm (2.0 - 3.7) AV Cusp: 1.8 cm (1.5 - 2.6) MV EXCURSION: 18.482 mm (> 18.000) MV EF SLOPE: 146 mm/s (70 - 150) EPSS: 0.6 cm MV E Aidan: 1.10 m/s MV DecT: 138 ms MV A Aidan: 1.24 m/s MV E/A Ratio: 0.89 RAP: 5.00 mmHg RVSP: 53.25 mmHg FINDINGS -------- Sinus rhythm. This was a technically good study. The left ventricular size is normal. There is borderline concentric left ventricular hypertrophy. Overall left ventricular systolic function is normal with, an EF between 55 - 60 %. Mitral Doppler inflow pattern suggests diastolic filling abnormality 15.44. The right ventricle is normal in size. Normal LA size by volume 22+/-6 ml/m2. The right atrial size is normal. Interatrial and interventricular septum intact. The aortic valve is trileaflet, and appears structurally normal. No aortic stenosis or regurgitation. The mitral valve leaflets are mild to moderately thickened. Mild mitral regurgitation is present. Mild tricuspid regurgitation present. There is moderate pulmonary hypertension. The right ventric ular systolic pressure, as measured by Doppler, is 53.25mmHg. Trace/mild (physiologic) pulmonic regurgitation. The aortic root size is normal. The inferior vena cava is mildly dilated. There is no pericardial effusion. CONCLUSIONS -------- 1. There is borderline concentric left ventricular hypertrophy. 2. Overall left ventricular systolic function is normal with, an EF between 55 - 60 %. 3. Normal LA size by volume 22+/-6 ml/m2. 4. The aortic valve is trileaflet, and appears structurally normal. No aortic stenosis or regurgitati on. 5. The mitral valve leaflets are mild to moderately thickened. 6. Mild mitral regurgitation is present. 7. Mild tricuspid regurgitation present. 8. There is moderate pulmonary hypertension. 9. Trace/mild (physiologic) pulmonic regurgitation. 10. There is no pericardial effusion. DIETITIAN THERAPEUTIC: Magali Yuen RDCS
[2020-11-27] MEDS: HEPARIN SODIUM,PORCINE 5,000 UNIT/ML 1 ML VIAL SQ SCH ×2 (10:24→23:11)
[2020-11-27] MEDS: METOPROLOL TARTRATE 12.5 MG TAB PO SCH ×2 (10:24→23:10)
[2020-11-27] MEDS: busPIRone HCl 5 MG TAB PO SCH ×2 (10:24→23:10)
[2020-11-27] MEDS: VERAPAMIL 40 MG TAB PO SCH ×3 (10:24→23:28)
[2020-11-27] MEDS: PARoxetine 20 MG TAB PO SCH (10:24)
[2020-11-27] MEDS ORDERED: methylPREDNISolone SOD SUCCI 125 MG/2 ML VIAL IV SCH (12:00)
[2020-11-27] MEDS ORDERED: SODIUM CHLORIDE 0.9% 500 ML 500 ML IV ONE (13:35)
[2020-11-27 13:38] VITALS: BMI 18.6
[2020-11-27] MEDS ORDERED: SODIUM CHLORIDE 0.9% 1,000 ML IV SCH (13:45)
[2020-11-27 15:16] LABS: Appearance,Urine Clear (Clear); Bilirubin,Urine Negative (Negative); Blood,Urine Small (Negative); Color,Urine Yellow; Glucose,Urine (UA) 1+ (Negative); Hyaline Casts,Urine 8 /lpf (0-2); Ketones,Urine Negative (Negative); Leukocyte Esterase,Urine Negative (Negative); Mucus,Urine Rare /hpf; Nitrite,Urine Negative (Negative); PH, Urine 5.5 (5.0-8.0); Protein,Urine 1+ (Negative); RBC,Urine 3 /hpf (0-5); Urobilinogen,Urine <2.0 mg/dL (<2.0); WBC,Urine 1 /hpf (0-5)
[2020-11-28 05:20] VITALS: RESP 18
[2020-11-28] MEDS: SODIUM CHLORIDE 0.9% 1,000 ML IV SCH (05:34)
[2020-11-28] MEDS: IPRATROPIUM-ALBUTEROL 3 ML NEB INHALATION SCH ×2 (07:17→11:25)
[2020-11-28] MEDS: SYMBICORT 160-4.5 MCG INHALER INHALATION SCH (07:19)
[2020-11-28] MEDS: busPIRone HCl 5 MG TAB PO SCH (08:16)
[2020-11-28] MEDS: HEPARIN SODIUM,PORCINE 5,000 UNIT/ML 1 ML VIAL SQ SCH (08:16)
[2020-11-28] MEDS: METOPROLOL TARTRATE 12.5 MG TAB PO SCH (08:16)
[2020-11-28] MEDS: PARoxetine 20 MG TAB PO SCH (08:16)
[2020-11-28] MEDS: VERAPAMIL 40 MG TAB PO SCH (08:17)
[2020-11-28] MEDS ORDERED: predniSONE 20 MG TAB PO SCH (09:00)
[2020-11-28 13:09] VITALS: BP 162/65; PULSE 99; TEMP 98.6
--- NOTE | 2020-11-29 15:02 | P.DS ---
Providers Date of admission: 11/27/20 07:02 Expected date of discharge: 11/28/20 Attending physician: Brando Vazquez Primary care physician: Eric Gay [facility] Hospital Course: Hospital course: This is a very pleasant 75-year-old patient of Dr. Eric Gay. past medical history noted below significant for severe COPD on home O2 who presented to the emergency room after she was found on the floor by her daughter at home. Patient is awake and alert and is a very poor historian. Most of the history was obtained by her daughter on the phone. around 4:30 in the morning he heard a loud noise and found her mom on the floor wrapped with her comforter. She said that her mom was without her oxygen. She appeared very confused and the daughter called EMS. There was no loss of consciousness or syncope reported. Patient was brought into the emergency room and underwent extensive imaging that was all negative. Her mentation is improving. Her oxygen saturation initially was 60% on 3 L but that recovered quickly and currently she is around 90%. She was oriented to herself and to the place. She appears to be a poor historian. Her cognition has been declining over the last few months. Patient herself denies any shortness of breath or cough. No fevers or chills. No other complaints otherwise. Patient is felt to have acute delirium with acute hypoxic encephalopathy from lack of oxygen. Responded well to the same. Today-doing well. Sitting up. Rather comfortable. Feels back to baseline. Oral intake fair. Very keen to go home. Discussed with the patient. Discussion and discharge planning more than 35 minutes Physical examination: VITAL SIGNS: 98.6, 99, once his tube 65, 97% on 4 L GENERAL: Sitting up in the bed, comfortable EYES: Pupils equal. Conjunctiva normal. HEENT: External appearance of nose and ears normal, oral cavity grossly normal. NECK: JVD not raised; masses not palpable. HEART: First and second heart sounds are normal; no edema. LUNGS: Respiratory rate increased, slightly better air entry ABDOMEN: Soft, nontender, liver spleen not palpable, no masses palpable. PSYCH: Able to carry its simple conversation. MUSCULOSKELETAL: Loss of subcutaneous fat, evidence of OA INVESTIGATIONS, reviewed in the clinical context: White count 14.5 hemoglobin 14.8 potassium 4.7 creatinine 0.99 Head/cervical spine computed tomography scan, pelvis x-ray: Negative for fracture 2-D echocardiogram-EF 55-60%, moderate pulmonary hypertension Chest x-ray film-nil acute reported Assessment: -Acute delirium and acute hypoxic encephalopathy. 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 Disposition: Home with daughter, Patient Condition at Discharge: Stable Plan - Discharge Summary Discharge Rx Participant: No New Discharge Prescriptions: Continue Budesonide-Formot 160-4.5 Mcg [Symbicort 160-4.5 Mcg Inhaler] 1 puff INHALATION RT-DAILY busPIRone HCL 15 mg PO BID PARoxetine HCL [Paxil] 40 mg PO DAILY Verapamil [Isoptin] 40 mg PO TID #90 tab Albuterol Nebulized [Ventolin Nebulized] 2.5 mg INHALATION RT-QID Metoprolol Tartrate [Lopressor] 12.5 mg PO BID Ipratropium-Albuterol Nebulize [Duoneb 0.5 mg-3 mg/3 ml Soln] 3 ml INHALATION RT-QID predniSONE [Deltasone] 40 mg PO DAILY Discharge Medication List Budesonide-Formot 160-4.5 Mcg [Symbicort 160-4.5 Mcg Inhaler] 1 puff INHALATION RT-DAILY 09/26/19 [History] PARoxetine HCL [Paxil] 40 mg PO DAILY 09/26/19 [History] busPIRone HCL 15 mg PO BID 09/26/19 [History] Verapamil [Isoptin] 40 mg PO TID #90 tab 09/30/19 [Rx] Albuterol Nebulized [Ventolin Nebulized] 2.5 mg INHALATION RT-QID 11/27/20 [History] Ipratropium-Albuterol Nebulize [Duoneb 0.5 mg-3 mg/3 ml Soln] 3 ml INHALATION RT-QID 11/27/20 [History] Metoprolol Tartrate [Lopressor] 12.5 mg PO BID 11/27/20 [History] predniSONE [Deltasone] 40 mg PO DAILY 11/27/20 [History] Follow up Appointment(s)/Referral(s): Eric Gay MD [Primary Care Provider] - 11/30/20 7:15 pm Patient Instructions/Handouts: Urinary Tract Infection in Women (GEN), Fall Prevention (GEN)
== END 2020-11-28 13:30 ==
LOC: EC 05:14 → 1SOBS 07:02 → 6NMEDSUR 19:10
PROVIDERS: ADMIT Hospitalist; ATTEND Hospitalist
DX: J96.21 Acute and chronic respiratory failure with hypoxia (principal); J43.9 Emphysema, unspecified; G93.1 Anoxic brain damage, not elsewhere classified; E86.0 Dehydration; G93.89 Other specified disorders of brain; F03.90 Unspecified dementia, unspecified severity, without behavioral disturbance, psychotic disturbance, mood disturbance, and anxiety; E44.1 Mild protein-calorie malnutrition; Z68.1 Body mass index [BMI] 19.9 or less, adult; R53.1 Weakness; I27.29 Other secondary pulmonary hypertension; W01.0XXA Fall on same level from slipping, tripping and stumbling without subsequent striking against object, initial encounter; Z99.81 Dependence on supplemental oxygen; Z79.51 Long term (current) use of inhaled steroids; Z79.52 Long term (current) use of systemic steroids; Z79.899 Other long term (current) drug therapy; Z90.49 Acquired absence of other specified parts of digestive tract; Z98.51 Tubal ligation status; Z87.891 Personal history of nicotine dependence
CPT/HCPCS: 96376; 96366; 96372 ×2; 96361; 96365; 96375; 99285; 51798; 36415; 94640 ×4; 93306; 97530; 97162; 97166; 80053; 82550; 83735; 84100; 84484; 85025; 85610; 85730; 81001; 72170; 71045; 72125; 70450; G0378 ×3; J1644 ×2; J2930; J0696 ×3; J7512